=== PATIENT | female | born 1985 | race Caucasian/White ===

== ENCOUNTER → 2017-02-12 | Outpatient (CLI) | payer OTHER ==
[~2017-02-12] MED LIST: HYDR-5688 PO; IBUP-1050 PO
== END | disposition home or self-care (01) ==
LOC: C.PAPS 08:39
PROVIDERS: ATTEND Obstetrics & Gynecology
DX: Z12.4 Encounter for screening for malignant neoplasm of cervix (principal)

== ENCOUNTER 2017-07-01 20:30 | Emergency (ER) | payer OTHER ==
[~2017-07-01] VITALS: Ht 170.2 cm; Wt 82.0 kg
[2017-07-01 20:45] VITALS: TEMP 36.7; Ht 170.2 cm; Wt 82.0 kg
[2017-07-01] MEDS ORDERED: HYDROCODONE/ACETAMOPHEN 5/325MG TAB PO STA (21:30)
[2017-07-01] MEDS ORDERED: IBUP-1050 PO (21:38)
--- NOTE | 2017-07-01 22:04 | DIAGNOSTIC IMAGING REPORT ---
RIGHT KNEE 1 OR 2 VIEWS ROUTINE CLINICAL HISTORY: right knee pain Right pain COMPARISON: None. DISCUSSION: The bones and joint spaces appear intact. There is no evidence of fracture, dislocation or bony disease. There is no evidence for soft tissue swelling. IMPRESSION: Negative study. The above report was generated using voice recognition software. It may contain grammatical, syntax or spelling errors. Electronically signed by: Jasmeet Jimenez M.D. 07/01/2017 10:03 PM Dictated Date/Time: 07/01/2017 10:02 PM
--- NOTE | 2017-07-01 22:05 | DIAGNOSTIC IMAGING REPORT ---
RIGHT TIBIA/FIBULA 2 VIEWS ROUTINE CLINICAL HISTORY: lower leg pain Right pain COMPARISON: None. DISCUSSION: The bones and joint spaces appear intact. There is no evidence of fracture, dislocation or bony disease. There is no evidence for soft tissue swelling. IMPRESSION: Negative study. The above report was generated using voice recognition software. It may contain grammatical, syntax or spelling errors. Electronically signed by: Jasmeet Jimenez M.D. 07/01/2017 10:03 PM Dictated Date/Time: 07/01/2017 10:03 PM
--- NOTE | 2017-07-01 22:13 | EMERGENCY ROOM VISIT NOTE ---
ED Visit Note First contact with patient: 21:24 CHIEF COMPLAINT: Right lower leg pain HISTORY OF PRESENT ILLNESS: This 31-year-old female presents the ER with chief complaint of right lower leg pain. The patient states that she was running on an elliptical and approximately 30 minutes into the workout she got a burning sensation on the lateral aspect of her right knee. She continued to work out and when she was done she had increased pain in the right knee extending down the lateral aspect of her leg and now has some numbness in her toes. The patient admits she had a skiing accident when she was 11 years old and injured the right knee but she has not had problems since that time. She has been taken ibuprofen for pain without any relief. REVIEW OF SYSTEMS: 6 system review was performed and was negative unless stated otherwise in history of present illness. PMH: The patient is healthy; cholecystectomy, tonsillectomy, ovarian cyst removal SOCIAL HISTORY: Patient lives with her children. The patient denies any tobacco use but admits to occasional alcohol use. PHYSICAL EXAM: Vital Signs: Were reviewed Reviewed Nurse's notes. GENERAL: 31- year-old female appears in no acute distress. MENTAL STATUS: Alert, oriented, and cooperative. RIGHT KNEE: No gross bony deformity noted. No erythema or edema noted. The patient has tenderness palpation over the lateral aspect of the knee. Limited range of motion secondary to pain. RIGHT LOWER LEG: No erythema noted. The patient has some slight ecchymosis noted on the distal lateral third of the lower leg extending onto the lateral aspect of the ankle. She is unable to flex her toes on her own. Pedal pulses 2+. EMERGENCY DEPARTMENT COURSE: The patient was evaluated. The patient was given [place] 5/325 mg 2 tablets by mouth for pain. X-ray of the right knee and right lower leg was ordered and interpreted by the radiologist and myself. DIAGNOSTICS:RIGHT KNEE 1 OR 2 VIEWS ROUTINE CLINICAL HISTORY: right knee pain Right pain COMPARISON: None. DISCUSSION: The bones and joint spaces appear intact. There is no evidence of fracture, dislocation or bony disease. There is no evidence for soft tissue swelling. IMPRESSION: Negative study. The above report was generated using voice recognition software. It may contain grammatical, syntax or spelling errors. Electronically signed by: Jasmeet Jimenez M.D. 07/01/2017 10:03 PM RIGHT TIBIA/FIBULA 2 VIEWS ROUTINE CLINICAL HISTORY: lower leg pain Right pain COMPARISON: None. DISCUSSION: The bones and joint spaces appear intact. There is no evidence of fracture, dislocation or bony disease. There is no evidence for soft tissue swelling. IMPRESSION: Negative study. The above report was generated using voice recognition software. It may contain grammatical, syntax or spelling errors. Electronically signed by: Jasmeet Jimenez M.D. 07/01/2017 10:03 PM Dictated Date/Time: 07/01/2017 10:03 PM The patient was informed of the findings. The patient was placed in a knee immobilizer and given crutches. The patient was discharged home in stable condition. She was given a [place] home pack. DIAGNOSIS: Right knee and lower leg pain DISCHARGE INSTRUCTIONS: Knee immobilizer for 3 - 5 days until the pain subsides , ibuprofen, 600 mg every 6 hours if needed for pain. [place] as needed for more severe pain. Do not drive while taking the [place]. Ice to and elevation to the knee frequently for the next 24 hours. Stay off the leg as much as possible and see your physician in 4 or 5 days if you are not improving. Problem List Medical Problems: (1) Tendonitis Status: Resolved Surgical Problems: (1) H/O: hysterectomy Status: Resolved (2) Hx of cholecystectomy Status: Resolved Current/Historical Medications Scheduled PRN Ibuprofen (Advil), 600 MG PO Q6H PRN for Pain Allergies Coded Allergies: Cefdinir (Verified Allergy, Intermediate, RASH, 09/06/16) Sodium Benzoate (Verified Allergy, Mild, Hives/Rash, 09/06/16) Reported by PT. Vital Signs Date Time Temp Pulse Resp B/P (MAP) Pulse Ox O2 Delivery O2 Flow Rate FiO2 07/01/17 20:45 36.7 78 16 115/75 100 Room Air Medications Administered Medications (Trade) Dose Ordered Sig/Andi Route Start Time Stop Time Status Last Admin Dose Admin Acetaminophen/ Hydrocodone Bitart ([place] 5/325 Tab) 2 tab NOW STAT PO 07/01/17 21:30 07/01/17 21:32 DC 07/01/17 21:36 2 TAB Departure Information Referrals No Doctor, Assigned (PCP) Patient Instructions [facility]
[2017-07-01] MEDS ORDERED: HYDR-5688 PO (22:15)
[2017-07-01] MEDS ORDERED: NORCO 5/325MG HOME PACK PO ONE (22:15)
[2017-07-01 22:30] VITALS: BP 132/58; PULSE 71; O2SAT 95
== END 2017-07-01 22:30 | disposition home or self-care (01) ==
LOC: C.EDB 20:33 → C.EDD 22:30
DX: M79.661 Pain in right lower leg (principal); M25.561 Pain in right knee; Z87.828 Personal history of other (healed) physical injury and trauma; Z90.710 Acquired absence of both cervix and uterus; Z90.49 Acquired absence of other specified parts of digestive tract; Z90.89 Acquired absence of other organs; Z98.890 Other specified postprocedural states

== ENCOUNTER 2023-12-18 19:10 | Observation (INO) ==
[2023-12-18] MEDS: MoRPHine SULFATE 4 MG/ML 1 ML CARP\\VIAL IV STA (19:57)
[2023-12-18] MEDS: SODIUM CHLORIDE 0.9% 1,000 ML IV STA (19:57)
[2023-12-18] MEDS: ONDANSETRON INJ 2 MG/ML 2 ML VIAL IV STA (19:58)
[2023-12-18 20:25] LABS: Appearance Urine Clear (Clear); Bilirubin Urine Negative (Negative); Blood Urine Negative (Negative); Color Urine Yellow; Glucose Urine UA Negative (Negative); Ketones Urine Negative (Negative); Leukocyte Esterase Urine Negative (Negative); Nitrite Urine Negative (Negative); Protein Urine Negative (Negative); Specific Gravity Urine 1.015 (1.000-1.030); Urobilinogen Urine Negative (Negative); pH Urine 5.5 (4.5-7.5)
[2023-12-18 20:35] LABS: Hemoglobin 13.4 g/dl (12.0-16.0); Mean Corpuscular Hemoglobin 30.2 pg (25.0-34.0); Mean Corpuscular Hgb Conc 34.4 g/dL (32.0-36.0); Mean Platelet Volume 8.9 fL (9.4-12.4); Platelet Count 279 K/uL (130-400); RDW Coefficient of Variation 12.6 % (11.5-14.5); Red Blood Count 4.43 M/uL (4.20-5.40); White Blood Count 8.15 K/ul (4.8-10.8)
[2023-12-18 20:46] LABS: Albumin Globulin Ratio 1.5 (0.9-2); Albumin Level 4.2 gm/dl (3.4-5.0); BUN Creatinine Ratio 17.6 (10-20); Bilirubin,Total 0.3 mg/dl (0.2-1.0); Creatinine Clr Calc Pharmacy 121.1 ml/min; Est GFR (African American) 117.5 ml/min; Est GFR (Non-African American) 101.3 ml/min; Globulin 2.8 gm/dl (2.5-4.0); Potassium 3.8 mmol/L (3.5-5.1)
[2023-12-18] MEDS: OPTIRAY 320 500ml IV ONE (21:02)
[2023-12-18] MEDS: MoRPHine SULFATE 10 MG/ML CARP/VIAL IV STA (21:19)
--- NOTE | 2023-12-18 21:34 | Emergency Department Note ---
ED Provider Note History of Present Illness Chief Complaint: Abdominal Pain Stated Complaint: ABD PAIN Time Seen by Provider: 12/18/23 19:20 38-year-old female who presents to the emergency department with her daughter for evaluation of abdominal pain, left flank pain and pain going down the left lower extremity. The patient reports that she initially developed left lower quadrant pain radiating into the back. Around 3 PM this afternoon, the patient reported increasing pain. The patient admits to diarrhea for the past 2 days, along with nausea and vomiting. The patient has not noticed any blood in her stool or urine. The pain is worsened with ambulation. The patient denies any prior history of GI issues or colonoscopies. Family history is unknown as the patient was adopted. Patient denies , reporting a prior history of tubal ligation and hysterectomy. The patient rates her discomfort an 8 out of 10. Home Medications Medication Instructions Recorded Confirmed Type No Known Home Medications 12/18/23 12/18/23 History Allergies Allergy/AdvReac Type Severity Reaction Status Date / Time cefdinir Allergy Intermediate RASH Verified 12/18/23 20:40 sodium benzoate Allergy Mild Hives/Rash Verified 08/07/20 14:42 Past Med/Surg History Medical History Acute biliary pancreatitis (09/27/14) Choledocholithiasis Stress reaction Surgical History Hx of cholecystectomy H/O: hysterectomy Social History (Updated 12/18/23 @ 21:31 by Vincenzo Garcia) Smoking Status: Former smoker Hx Alcohol Use: No Hx Substance Use: No Preferred Language: Tajik marital status: Single Current Living Situation: Family current occupational status: employed Feels Safe at Home: Yes Physical Exam Vital Signs Vital Signs - 24 hr 12/18/23 19:15 12/18/23 19:32 12/18/23 21:18 Temperature 36.7 C Temperature Source Temporal Artery Scan Pulse Rate 85 76 Pulse Rate [Apical] 67 Pulse Rhythm [Apical] Regular Pulse Strength [Apical] Normal Respiratory Rate 16 18 Respiratory Effort / Characteristics Non-Labored Respiratory Depth Normal Respiratory Pattern Regular Blood Pressure 165/98 H Blood Pressure [Right Arm] 122/76 Blood Pressure Mean 120 Blood Pressure Mean [Right Arm] 91 Blood Pressure Position [Right Arm] Sitting Pulse Oximetry 98 95 Oxygen Delivery Method Room Air Room Air Sepsis Recent Fever Within 48 Hours No Sepsis New/Unexplained Change in Mental Status No Sepsis Action Taken by Nursing No Action Required CONSTITUTIONAL: Healthy and well nourished. Patient appears in moderate discomfort. HEENT: No scleral icterus or conjunctival injection/pallor. RESPIRATORY: Clear to auscultation bilaterally with no wheezing, crackles, rhonchi or stridor. CARDIOVASCULAR: Regular rate and rhythm with no murmurs, rubs or gallops. GASTROINTESTINAL: Bowel sounds present in all quadrants. Patient has left lower quadrant tenderness to palpation without rigidity, guarding or rebound. Negative logroll of the left hip, and negative straight leg raise. MUSCULOSKELETAL: Full range of motion of all joints without discomfort. INTEGUMENTARY: No rash or other significant dermatologic conditions noted. HEMATOLOGIC: No ecchymosis or petechiae. PSYCHIATRIC: Flat affect. NEUROLOGIC: No focal neurologic deficits noted. Course Course Patient history and physical exam were performed. Nurses notes were reviewed. Vital signs were reviewed. IV access was established, and labs were drawn. The patient was hydrated with a liter normal saline, and administered IV morphine and Zofran for pain. Review of labs shows a normal CBC and CMP, other than an elevated random glucose. Urinalysis shows no hematuria or signs of infection. Serum was negative. After returning from CT imaging, the patient did request something additional for pain, and was administered additional IV morphine. CT with IV contrast of the abdomen and pelvis shows a questionable small bowel obstruction, with radiologist report showing no significant small bowel distention or transition point. Closed-loop obstruction was also questioned. Upon reevaluation, the patient was still rating her discomfort a 6 out of 10. She denied any persistent nausea. I did discuss the case further with Dr. Tapia, ED attending physician, who recommended discussing the case with the hospitalist service. The case was then discussed with Dr. Gerardo, [facility] hospitalist, who has agreed with overnight observation, and possible small bowel follow-through if symptoms persist. Please see their dictation for further treatment and final disposition. Administered Medications Discontinued Medications Hydromorphone HCl (Hydromorphone Inj 1 Mg/Ml Syringe) 1 mg IV NOW STA Stop: 12/18/23 22:53 Last Admin: 12/18/23 23:00 Dose: 1 mg Documented By: BINU Sodium Chloride (Nss) 1,000 mls @ 999 mls/hr IV .Q1H1M STA Stop: 12/18/23 20:46 Last Infusion: 12/18/23 21:11 Dose: Infused Documented By: Admin: 12/18/23 19:57 Dose: 999 mls/hr Documented By: BINU Ioversol (Optiray 320 500ml) 87 ml IV ONCE ONE Stop: 12/18/23 21:03 Last Admin: 12/18/23 21:02 Dose: 87 ml Documented By: SHAKIRA Morphine Sulfate (Morphine Sulfate 4 Mg/Ml 1 Ml Carp\Vial) 4 mg IV NOW STA Stop: 12/18/23 19:47 Last Admin: 12/18/23 19:57 Dose: 4 mg Documented By: BINU Morphine Sulfate (Morphine Sulfate 10 Mg/Ml Carp/Vial) 6 mg IV NOW STA Stop: 12/18/23 20:56 Last Admin: 12/18/23 21:19 Dose: 6 mg Documented By: BINU Ondansetron HCl (Ondansetron Inj 2 Mg/Ml 2 Ml Vial) 4 mg IV NOW STA Stop: 12/18/23 19:47 Last Admin: 12/18/23 19:58 Dose: 4 mg Documented By: BINU Medical Decision Making Medical Records Attestation: I reviewed the patient's medical records. Home Medications was personally reviewed by me Laboratory Data Attestation: I reviewed the patient's lab results. 12/18/23 20:11 12/18/23 20:11 Lab Results 12/18/23 12/18/23 Range/Units 20:11 Unknown WBC 8.15 (4.8-10.8) K/ul RBC 4.43 (4.20-5.40) M/uL Hgb 13.4 (12.0-16.0) g/dl Hct 39.0 (37.0-47.0) % MCV 88.0 (80.0-100.0) fL MCH 30.2 (25.0-34.0) pg MCHC 34.4 (32.0-36.0) g/dL RDW Std Deviation 40.0 (36.4-46.3) fL RDW Coeff of Jose 12.6 (11.5-14.5) % Plt Count 279 (130-400) K/uL MPV 8.9 L (9.4-12.4) fL Sodium 137 (136-145) mmol/L Potassium 3.8 (3.5-5.1) mmol/L Chloride 105 (98-107) mmol/L Carbon Dioxide 25 (21-32) mmol/L Anion Gap 7 (3-11) BUN 13 (6-23) mg/dl Creatinine 0.74 (0.6-1.2) mg/dl Est Cr Clr Drug Dosing 121.1 ml/min Est GFR ( Amer) 117.5 ml/min Est GFR (Non-Af Amer) 101.3 ml/min BUN/Creatinine Ratio 17.6 (10-20) Glucose 106 H (70-99(Fasting)) mg/dl Calcium 9.0 (8.6-10.3) mg/dl Total Bilirubin 0.3 (0.2-1.0) mg/dl AST 19 (13-39) U/L ALT 17 (7-52) U/L Alkaline Phosphatase 38 (34-104) U/L Total Protein 7.0 (6.0-8.3) gm/dl Albumin 4.2 (3.4-5.0) gm/dl Globulin 2.8 (2.5-4.0) gm/dl Albumin/Globulin Ratio 1.5 (0.9-2) Lipase 64 (11-82) U/L HCG, Qual Negative (Negative) Urine Color Yellow Urine Appearance Clear (Clear) Urine pH 5.5 (4.5-7.5) Ur Specific [place] 1.015 (1.000-1.030) Urine Protein Negative (Negative) Urine Glucose (UA) Negative (Negative) Urine Ketones Negative (Negative) Urine Blood Negative (Negative) Urine Nitrite Negative (Negative) Urine Bilirubin Negative (Negative) Urine Urobilinogen Negative (Negative) Ur Leukocyte Esterase Negative (Negative) Imaging Data Attestation: I personally reviewed and interpreted this imaging study as follows: My Impression: My interpretation of the CT with IV contrast of the abdomen and pelvis does not show evidence for diverticulitis, appendicitis or free air. There is a questionable small bowel obstruction without anticipated dilation of small bowel on either side of fecal material in that region. Radiologist questions the possibility of a small loop obstruction, with recommendations for a small bowel follow-through as warranted. Radiologist report was otherwise reviewed with concurrence. Radiologist's Impression: Abdomen/Pelvis CT 12/18/23 19:47 Exam(s): CT ABDOMEN + PELVIS With Contrast IV Amt: 87 ml opti 320 EXAM: CT Abdomen and Pelvis With Intravenous Contrast CLINICAL HISTORY: Reason for exam: LLQ abd pain. TECHNIQUE: Axial computed tomography images of the abdomen and pelvis with intravenous contrast. CTDI is 27.95 mGy and DLP is 1447.82 mGy-cm. Automated exposure control was utilized for the study. A dose lowering technique was utilized adhering to the principles of ALARA. CONTRAST: Patient received 87 ml opti 320 of IV contrast COMPARISON: 01/26/2016 FINDINGS: Lung bases: Unremarkable. No mass. No consolidation. ABDOMEN: Liver: Unremarkable. No mass. Gallbladder and bile ducts: Gallbladder has been removed. No ductal dilation. Pancreas: Unremarkable. No mass. No ductal dilation. Spleen: Unremarkable. No splenomegaly. Adrenals: Unremarkable. No mass. Kidneys and ureters: 2.6 cm simple cyst arising off the lower pole of the left kidney. No further workup is required. No hydronephrosis. Stomach and bowel: Abnormal formed fecal material within a short segment of normal caliber small bowel within the deep posterior pelvis but both the small bowel proximal and distal to the point is decompressed and is of unclear significance. No obstruction. No mucosal thickening. PELVIS: Appendix: No findings to suggest acute appendicitis. Bladder: Unremarkable. No mass. Reproductive: Unremarkable as visualized. ABDOMEN and PELVIS: Intraperitoneal space: Small amount of free fluid in the pelvis with loose calcification. No free air. Bones/joints: No acute fracture. No dislocation. Soft tissues: Unremarkable. Vasculature: Unremarkable. No abdominal aortic aneurysm. Lymph nodes: Unremarkable. No enlarged lymph nodes. IMPRESSION: Abnormal formed fecal material within a short segment of normal caliber small bowel within the deep posterior pelvis but both the small bowel proximal and distal to the point is decompressed and is of unclear significance. Closed loop obstruction would be possible but seems less likely without the dilatation of the actual small bowel loop but if there is concern for bowel obstruction, small bowel series can be considered.. Electronically signed by: Isaiah Peralta M.D. 12/18/23 21:32 PM MDM Narrative See ED Course section for further details of today's visit. The patient presents with complaint of left lower quadrant abdominal pain, as well as preceding nausea, vomiting and loose stools. Today's workup is concerning for possible small bowel obstruction. The patient is afebrile and does not have any leukocytosis to suggest infectious etiology. CT imaging does not show evidence for diverticulitis, appendicitis or perforation. Laboratory studies also are not suggestive of pancreatitis, cholecystitis or hepatitis. The patient has persistent pain, and given CT findings, I do feel that further observation is warranted. I did discuss the case further with Dr. Tapia, ED attending physician, who is in agreement with workup and observation plan. Impression Left lower quadrant abdominal pain, Nausea and vomiting Discharge Plan Visit Data Chief Complaint: Abdominal Pain Stated Complaint: ABD PAIN ED Provider: Jasmeet Tapia ED Midlevel Provider: Vincenzo Garcia Discharge Problem: Left lower quadrant abdominal pain, Nausea and vomiting Forms Stand Alone Forms: My [facility] [employer] Prescriptions Prescriptions: No Action No Known Home Medications Referrals Referrals: PCP,NO [Primary Care Provider] -
[2023-12-18 21:37] LABS: Pregnancy Test, Serum Negative (Negative)
[2023-12-18] MEDS: HYDROmorphone INJ 1 MG/ML SYRINGE IV STA (23:00)
--- NOTE | 2023-12-18 23:07 | History & Physical Report ---
Date of Service December 18, 2023 Assessment & Plan (1) Left lower quadrant abdominal pain: Plan: 38yo female presenting with LLQ abdominal pain, nausea, increased bowel movements. CT findings as above, concerning for possible closed loop bowel obstruction. Patient has had a cholecystectomy and hysterectomy in the past. No prior bowel obstructions. Presently without nausea. Passing some flatus. -Observation to medical -Maintain NPO -LR at 125mL/hr x 2 liters -Check Mg and replete as needed -Zofran PRN -Dilaudid PRN -KUB in the morning. If suspected obstruction can obtain contrast SB series (2) Nausea and vomiting: Plan: -KUB in the AM -Zofran and Dilaudid PRN F/E/N - LR at 125mL/hr x 2L, electrolytes WNL, NPO for now Ppx - Low risk for DVT Code - Full Dispo - Observation to medical History of Present Illness Chief Complaint: abdominal pain Primary Care Provider: NO PCP Candi Andrews is a 38yo female presenting with abdominal pain. Patient reports over the last several days she has had intermittent nausea with an episode of non-bloody/non-bilious vomiting yesterday as well as multiple soft BMs daily, more than usual. She has had some abdominal distention and bloating as well. This afternoon at 15:00 she developed severe LLQ pain and pressure. The pain progressed throughout the day with radiation into the back and into the left thigh. She tool Tylenol at home with no relief. She is passing gas but feels that she has a lot of bloating and distention. Otherwise, no fever, chills, cough, SOB, CP. No urinary complaints. Patient had her period last week. No vaginal discharge or discomfort. No additional complaints at this time. In the ER she is afebrile, HD stable, NAD ER Course: Morphine 4mg IV Morphine 6mg IV Zofran 4mg IV NSS Dilaudid 1mg IV Allergies Allergy/AdvReac Type Severity Reaction Status Date / Time cefdinir Allergy Intermediate RASH Verified 12/18/23 20:40 sodium benzoate Allergy Mild Hives/Rash Verified 08/07/20 14:42 Home Medications Medication Instructions Recorded Confirmed Type No Known Home Medications 12/18/23 12/18/23 History Past Med/Surg History Medical History (Updated 12/18/23 @ 23:32 by Suri Gerardo DO) Acute biliary pancreatitis (09/27/14) Choledocholithiasis Surgical History Hx of cholecystectomy H/O: hysterectomy Social History Smoking Status: Former smoker Hx Alcohol Use: No Hx Substance Use: No Preferred Language: Palauan marital status: Single Current Living Situation: Family current occupational status: employed Feels Safe at Home: Yes Review of Systems Review of Systems: All systems reviewed & are unremarkable except as noted in HPI & below Physical Exam Physical Exam: General: patient uncomfortable but in NAD, answering questions appropriately Skin: warm, dry, intact, no rashes or lesions HEENT: NC/AT, PERRL, EOMI, anicteric sclera, conjunctiva without injection, external ear normal to inspection and nontender, nares patent, moist mucus membranes, dentition intact, no oropharyngeal lesions, neck supple, trachea midline, no LAD, no thyromegaly, no JVD Heart: +S1/S2, regular, no m/r/g Lungs: equal air entry bilaterally, no rales/rhonchi/wheezes Abd: hypoactive bowel sounds, soft, mildly distended, LLQ pain without rebound/guarding Ext: warm, 2+ pulses in UE/LE bilaterally, no clubbing/cyanosis or edema Neuro: nonfocal, patient AA&O x 4, speech intact, no facial droop, moving all extremities on command with equal strength 5/5 Results & Data Results & Data Vital Signs (Past 12 Hours) Vital Signs Temp Pulse Pulse Resp BP BP Pulse Ox 12/18/23 21:18 67 18 122/76 95 12/18/23 19:32 76 12/18/23 19:15 36.7 C 85 16 165/98 H 98 O2 Del Method 12/18/23 21:18 Room Air 12/18/23 19:32 12/18/23 19:15 Room Air Laboratory Results Laboratory Results WBC 8.15 K/ul (4.8-10.8) 12/18/23 20:11 RBC 4.43 M/uL (4.20-5.40) 12/18/23 20:11 Hgb 13.4 g/dl (12.0-16.0) 12/18/23 20:11 Hct 39.0 % (37.0-47.0) 12/18/23 20:11 MCV 88.0 fL (80.0-100.0) 12/18/23 20:11 MCH 30.2 pg (25.0-34.0) 12/18/23 20:11 MCHC 34.4 g/dL (32.0-36.0) 12/18/23 20:11 RDW Std Deviation 40.0 fL (36.4-46.3) 12/18/23 20:11 RDW Coeff of Jose 12.6 % (11.5-14.5) 12/18/23 20:11 Plt Count 279 K/uL (130-400) 12/18/23 20:11 MPV 8.9 fL (9.4-12.4) L 12/18/23 20:11 Sodium 137 mmol/L (136-145) 12/18/23 20:11 Potassium 3.8 mmol/L (3.5-5.1) 12/18/23 20:11 Chloride 105 mmol/L (98-107) 12/18/23 20:11 Carbon Dioxide 25 mmol/L (21-32) 12/18/23 20:11 Anion Gap 7 (3-11) 12/18/23 20:11 BUN 13 mg/dl (6-23) 12/18/23 20:11 Creatinine 0.74 mg/dl (0.6-1.2) 12/18/23 20:11 Est Cr Clr Drug Dosing 121.1 ml/min 12/18/23 20:11 Est GFR ( Amer) 117.5 ml/min 12/18/23 20:11 Est GFR (Non-Af Amer) 101.3 ml/min 12/18/23 20:11 BUN/Creatinine Ratio 17.6 (10-20) 12/18/23 20:11 Glucose 106 mg/dl (70-99(Fasting)) H 12/18/23 20:11 Calcium 9.0 mg/dl (8.6-10.3) 12/18/23 20:11 Total Bilirubin 0.3 mg/dl (0.2-1.0) 12/18/23 20:11 AST 19 U/L (13-39) 12/18/23 20:11 ALT 17 U/L (7-52) 12/18/23 20:11 Alkaline Phosphatase 38 U/L (34-104) 12/18/23 20:11 Total Protein 7.0 gm/dl (6.0-8.3) 12/18/23 20:11 Albumin 4.2 gm/dl (3.4-5.0) 12/18/23 20:11 Globulin 2.8 gm/dl (2.5-4.0) 12/18/23 20:11 Albumin/Globulin Ratio 1.5 (0.9-2) 12/18/23 20:11 Lipase 64 U/L (11-82) 12/18/23 20:11 HCG, Qual Negative (Negative) 12/18/23 20:11 Urine Color Yellow 12/18/23 Unknown Urine Appearance Clear (Clear) 12/18/23 Unknown Urine pH 5.5 (4.5-7.5) 12/18/23 Unknown Ur Specific [place] 1.015 (1.000-1.030) 12/18/23 Unknown Urine Protein Negative (Negative) 12/18/23 Unknown Urine Glucose (UA) Negative (Negative) 12/18/23 Unknown Urine Ketones Negative (Negative) 12/18/23 Unknown Urine Blood Negative (Negative) 12/18/23 Unknown Urine Nitrite Negative (Negative) 12/18/23 Unknown Urine Bilirubin Negative (Negative) 12/18/23 Unknown Urine Urobilinogen Negative (Negative) 12/18/23 Unknown Ur Leukocyte Esterase Negative (Negative) 12/18/23 Unknown Impressions Abdomen/Pelvis CT 12/18/23 19:47 Exam(s): CT ABDOMEN + PELVIS With Contrast IV Amt: 87 ml opti 320 EXAM: CT Abdomen and Pelvis With Intravenous Contrast CLINICAL HISTORY: Reason for exam: LLQ abd pain. TECHNIQUE: Axial computed tomography images of the abdomen and pelvis with intravenous contrast. CTDI is 27.95 mGy and DLP is 1447.82 mGy-cm. Automated exposure control was utilized for the study. A dose lowering technique was utilized adhering to the principles of ALARA. CONTRAST: Patient received 87 ml opti 320 of IV contrast COMPARISON: 01/26/2016 FINDINGS: Lung bases: Unremarkable. No mass. No consolidation. ABDOMEN: Liver: Unremarkable. No mass. Gallbladder and bile ducts: Gallbladder has been removed. No ductal dilation. Pancreas: Unremarkable. No mass. No ductal dilation. Spleen: Unremarkable. No splenomegaly. Adrenals: Unremarkable. No mass. Kidneys and ureters: 2.6 cm simple cyst arising off the lower pole of the left kidney. No further workup is required. No hydronephrosis. Stomach and bowel: Abnormal formed fecal material within a short segment of normal caliber small bowel within the deep posterior pelvis but both the small bowel proximal and distal to the point is decompressed and is of unclear significance. No obstruction. No mucosal thickening. PELVIS: Appendix: No findings to suggest acute appendicitis. Bladder: Unremarkable. No mass. Reproductive: Unremarkable as visualized. ABDOMEN and PELVIS: Intraperitoneal space: Small amount of free fluid in the pelvis with loose calcification. No free air. Bones/joints: No acute fracture. No dislocation. Soft tissues: Unremarkable. Vasculature: Unremarkable. No abdominal aortic aneurysm. Lymph nodes: Unremarkable. No enlarged lymph nodes. IMPRESSION: Abnormal formed fecal material within a short segment of normal caliber small bowel within the deep posterior pelvis but both the small bowel proximal and distal to the point is decompressed and is of unclear significance. Closed loop obstruction would be possible but seems less likely without the dilatation of the actual small bowel loop but if there is concern for bowel obstruction, small bowel series can be considered.. Electronically signed by: Isaiah Peralta M.D. 12/18/23 21:32 PM PG Care Time/CCT Total # of Minutes Spent Total Time Spent with Patient: Total time spent is greater than 50% in coordination of care (as documented) at patient's floor/unit and/or counseling patient: Coding Level of Care Code 45138 INT INP/OBS CARE 2/55MIN Diagnoses Left lower quadrant abdominal pain R10.32 Nausea and vomiting R11.2
[2023-12-19] MEDS ORDERED: HYDROmorphone INJ 0.5 MG/0.5 ML SYR IV PRN (00:23)
[2023-12-19 00:42] LABS: Magnesium 1.7 mg/dl (1.7-2.4)
[2023-12-19] MEDS: LACTATED RINGER'S 1,000 ML IV SCH (01:05)
[2023-12-19] MEDS: ONDANSETRON INJ 2 MG/ML 2 ML VIAL IV PRN (02:10)
[2023-12-19] MEDS: HYDROmorphone INJ 0.5 MG/0.5 ML SYR IV PRN (02:10)
[2023-12-19 06:28] LABS: Hematocrit (blood only) 36.5 % (37.0-47.0); Hemoglobin 12.4 g/dl (12.0-16.0); Mean Corpuscular Hemoglobin 30.2 pg (25.0-34.0); Mean Platelet Volume 8.9 fL (9.4-12.4); Platelet Count 252 K/uL (130-400); RDW Coefficient of Variation 12.8 % (11.5-14.5); RDW Standard Deviation 41.2 fL (36.4-46.3); White Blood Count 8.46 K/ul (4.8-10.8)
[2023-12-19 06:43] LABS: BUN Creatinine Ratio 13.3 (10-20); Calcium 8.8 mg/dl (8.6-10.3); Creatinine Clr Calc Pharmacy 115.5 ml/min; Est GFR (African American) 102.2 ml/min; Est GFR (Non-African American) 88.2 ml/min; Potassium 3.7 mmol/L (3.5-5.1)
--- NOTE | 2023-12-19 11:25 | Hospitalist Progress Note ---
Date of Service December 19, 2023 Assessment & Plan (1) Left lower quadrant abdominal pain: Plan: 38yo female presenting with LLQ abdominal pain, nausea, increased bowel movements. CT findings as above, concerning for possible closed loop bowel obstruction and abnormal fecal matter. Patient has had a cholecystectomy and hysterectomy in the past. No prior bowel obstructions. Presently without nausea. Passing some flatus. -Obtain KUB, already done, official result pending -Maintain NPO -LR at 125mL/hr x 2 liters (2) Nausea and vomiting: Plan: -KUB in the AM -Zofran and Dilaudid PRN F/E/N - LR at 125mL/hr x 2L, electrolytes WNL, NPO for now Ppx - Low risk for DVT Code - Full Dispo - Observation to medical Plan Awaiting results of KUB Admission and Anticipated Discharge Date Admission Date: December 18, 2023 Subjective Patient seen and examined, still having some lower abdominal pain but states she is passing gas. Review of Systems Review of Systems: The patient is awake, alert and oriented 3, well developed and well nourished, normocephalic and atraumatic, lying in bed and in no acute distress. HEENT--PERRL, EOMI, mucous membranes and oropharynx mildly dry Neck--supple. No JVD. No bruits. Thyroid normal, trachea midline, no adenopathy. Heart--normal S1 and S2. No murmurs, rubs or gallops. Lungs--clear bilaterally, no respiratory distress, no accessory muscle use. Abdomen--normal bowel sounds and soft. Mild epigastric and left sided abdominal pain Extremities--no cyanosis or clubbing. No edema. Dermatologic--normal skin turgor, normal color, no abnormal lymph nodes, no rash. Neurologic--cranial nerves II through XII grossly intact. Rheumatologic--normal range of motion. Psychiatric--normal affect. Results & Data Results & Data Vital Signs (Past 12 Hours) Vital Signs Temp Pulse Pulse Pulse Resp BP BP 12/19/23 08:14 98.1 F 72 17 122/76 12/19/23 00:32 12/19/23 00:32 98.1 F 68 18 128/86 12/18/23 23:23 68 Pulse Ox O2 Del Method 12/19/23 08:14 96 Room Air 12/19/23 00:32 Room Air 12/19/23 00:32 98 Room Air 12/18/23 23:23 PG Care Time/CCT Total # of Minutes Spent Total Time Spent with Patient: Total time spent is greater than 50% in coordination of care (as documented) at patient's floor/unit and/or counseling patient: Coding Level of Care Code 61200 SUB INP/OBS CARE 2/35MIN Diagnoses Left lower quadrant abdominal pain R10.32 Nausea and vomiting R11.2 Time Spent (min) 35
--- NOTE | 2023-12-19 12:01 | XRay Report ---
KUB HISTORY: Abnormal abdomen and pelvis CT. Follow-up. possible obstruction COMPARISON: Abdomen and pelvis CT 12/18/2023. FINDINGS: The bowel gas pattern is unremarkable. There are no dilated loops of small bowel to suggest an obstruction. No renal calculi. No ureteral calculi. No pneumoperitoneum or pneumatosis. There is contrast within the bladder from the recent CT examination. Prior cholecystectomy. IMPRESSION: Nonobstructive bowel gas pattern. ACT 112: Negative or not required by law. Electronically signed by: Jeet Stephen M.D. 12/19/2023 12:00 PM
--- OUTSIDE RECORDS SUMMARY | 2023-12-19 14:36 | External Medical Summary | Summary of Care ---
Author Name Unknown Organization [facility] Address [address] [facility] [place] [address] Phone [phone] Care Team Providers Care Fusing Machine Operator Name Role Phone Unavailable Primary Care Provider Unavailabl e Reason for Visit * Reason Onset Date Comments TB Test Reading 08/03/2023 Encounter Details Date Type Department Care Team Description 08/03/2023 [facility] Visit [facility], [place] [address] [place] [address] [place] [facility] [address] [place] [address] PPD screening test* Allergies Active Allergy Reactions Severity Noted Date Comments Amoxicillin Hives 02/03/2015 Cefdinir Hives 10/04/2014 documented as of this encounter (statuses as of 08/03/2023) Medications Medication Sig Dispensed Refills Start Date End Date Status cyclobenzaprine (FLEXERIL) 10 MG TabletIndications:Spa sm of muscle Take 1 Tab by mouth 2 times a day as needed for Muscle spasms. 20 Tab 0 03/27/2017 Active etodolac XL (LODINE XL) 500 MG TB24 Take 2 Tabs by mouth daily. 60 Tab 1 2017 Active sertraline (ZOLOFT) 50 MG Tablet Take 0.5 Tablets by mouth in the morning. 0 02/09/2020 Active Vitamin D, Ergocalciferol, 1.25 MG (57473 UT) Capsule TK 1 C PO 1 TIME Q WK 0 02/09/2020 Active SUMAtriptan Succinate 100 MG Tablet Take 1 Tablet by mouth. 0 04/02/2019 Active Aspirin-Acetaminophen -Caffeine 250-250-65 MG per tablet Take 1 Tab by mouth. 0 04/02/2019 Active methylPREDNISolone (MEDROL DOSEPACK) 4 MG TBPKIndications:Rash and nonspecific skin eruption follow package directions 21 Tab 0 05/22/2020 Active documented as of this encounter (statuses as of 08/03/2023) Active Problems Problem Noted Date Pancreatitis, gallstone 10/04/2014 Iron deficiency anemia 10/04/2014 Circulation problem 10/04/2014 Tobacco use disorder 10/04/2014 General medical exam 01/10/2014 Endometriosis S/P unilateral salpingo-oophorectomy Overview: right documented as of this encounter (statuses as of 08/03/2023) Immunizations Name Administration Dates Next Due PPD 08/01/2023 documented as of this encounter Social History Tobacco Use Types Packs/Day Years Used Date Smoking Tobacco: Former Cigarettes 0.2 Q uit: 09/12/2014 Smokeless Tobacco: Never Alcohol Use Standard Drinks/Week Comments Yes 0 (1 standard drink = 0.6 oz pur e alcohol) Sex Assigned at Date Recorded Not on file Job Start Date Occupation Industry Not on file Not on file Not on file documented as of this encounter Progress Notes * Taylor Thayer LPN - 08/03/2023 3:09 PM EDT Patient here for PPD reading. PPD Results: 0 mm documented in this encounter Plan of Treatment Health Maintenance Due Date Last Done Comments Hepatitis B (1 of 3 - 3-dose series) 1983 Lipid Panel 1983 COVID-19 Vaccine (#1) 01/15/1984 HIV Screening 1998 Hepatitis C Screening 2001 DTaP,Tdap,and Td Vaccines (1 - Tdap) 2002 Pap Smear 2004 Cervical Cancer Screening 2013 HPV/Co-Test 2013 Depression Screening 09/12/2017 09/12/2016 Diabetes Screening 09/06/2019 09/06/2016, 0 01/26/2016, 12/26/2015, Additional history exists Mammogram 2023 Influenza Vaccine (FLU shot) (#1) 2023 GARDASIL-HPV IMMUNIZATION SERIES Aged Out No longer eligible based on patient's age to complete this topic MENINGOCOCCAL (MENACTRA/MENVEO) Aged Out No longer eligible based on patient's age to complete this topic Pneumococcal Vaccine: Pediatrics (0 to 5 Years) and At-Risk Patients (6 to 64 Years) Aged Out No longer eligible based on patient's age to complete this topic documented as of this encounter Medical Devices Not on filedocumented as of this encounter Visit Diagnoses Diagnosis PPD screening test- Primary Screening examination for pulmonary tuberculosis documented in this encounter
--- OUTSIDE RECORDS SUMMARY | 2023-12-19 14:36 | External Medical Summary | Summary of Care ---
Author Name Unknown Organization [facility] Address [address] [facility] [place] [address] Phone [phone] Care Team Providers Care Can Line Operator Name Role Phone Unavailable Primary Care Provider Unavailabl e Reason for Visit * Reason Onset Date Comments PPD Skin Test 08/01/2023 Encounter Details Date Type Department Care Team Description 08/01/2023 Immunization/I njection [facility], [place] [address] [address] [place], Nurse [facility] [place] [address] [facility] [place] [address] Screening-pulmonary TB* Allergies Active Allergy Reactions Severity Noted Date Comments Amoxicillin Hives 02/03/2015 Cefdinir Hives 10/04/2014 documented as of this encounter (statuses as of 08/01/2023) Medications Medication Sig Dispensed Refills Start Date End Date Status cyclobenzaprine (FLEXERIL) 10 MG TabletIndications:Spa sm of muscle Take 1 Tab by mouth 2 times a day as needed for Muscle spasms. 20 Tab 0 03/27/2017 Active etodolac XL (LODINE XL) 500 MG TB24 Take 2 Tabs by mouth daily. 60 Tab 1 2017 Active sertraline (ZOLOFT) 50 MG Tablet Take 50 mg by mouth daily. 0 02/09/2020 Active Vitamin D, Ergocalciferol, 1.25 MG (91599 UT) Capsule TK 1 C PO 1 TIME Q WK 0 02/09/2020 Active SUMAtriptan Succinate 100 MG Tablet Take 100 mg by mouth. 0 04/02/2019 Active Aspirin-Acetaminophen -Caffeine 250-250-65 MG per tablet Take 1 Tab by mouth. 0 04/02/2019 Active methylPREDNISolone (MEDROL DOSEPACK) 4 MG TBPKIndications:Rash and nonspecific skin eruption follow package directions 21 Tab 0 05/22/2020 Active documented as of this encounter (statuses as of 08/01/2023) Active Problems Problem Noted Date Pancreatitis, gallstone 10/04/2014 Iron deficiency anemia 10/04/2014 Circulation problem 10/04/2014 Tobacco use disorder 10/04/2014 General medical exam 01/10/2014 Endometriosis S/P unilateral salpingo-oophorectomy Overview: right documented as of this encounter (statuses as of 08/01/2023) Immunizations Name Administration Dates Next Due PPD [...] on file documented as of this encounter Patient Instructions * Patient Instructions* Taylor Thayer LPN - 08/01/2023 1:54 PM EDT PATIENT INSTRUCTIONS FOR TUBERCULOSIS TESTING Also known as: Purified Protein Derivative (PPD) IMPORTANT INFORMATION: Return to clinic on 08/03/23 after 155 pm but before 155 pm on 08/04/23 in order to have your PPD read. Whether you have active TB disease or simply test positive for TB infection, you must see a healthcare professional for evaluation and treatment. Tuberculosis (TB) is a disease that spreads through the air. It can cause serious health problems. TB is on the rise. To protect your health, get tested. Who Should Be Tested? Anyone can be exposed to TB. However, certain people are at higher risk for exposure, especially healthcare professionals, the homeless, and people coming from countries with high TB rates. People whose bodies are less able to fight off infections, such as the elderly and people with HIV and AIDS, are also more likely to get TB. If youre at risk for exposure, get tested regularly. The TB Skin Test The TB skin test tells you if the tuberculosis bacteria are in your body. Your healthcare professional places a small amount of solution under the skin with a needle to see if a reaction occurs. Keepin mind that although many people are infected with TB, very few develop TB disease. Getting Your TB Test Results Your test results will be evaluated during the next visit. In some cases, a second test may be doneto confirm results. What Do the Test Results Mean? Negative results mean you likely dont have the TB bacteria in your body. Positive results mean that you may have been infected with the TB bacteria. This doesnt necessarily mean you have active TB disease. More tests, such as chest x-rays, are needed to find out if youhave TB disease. [id number] [facility], [address] [place] [address], [place] [address]. All rights reserved. This information is not intended as a substitute for professional medical care. Always follow your healthcare professional's instructions. documented in this encounter Progress Notes * Taylor Thayer LPN - 08/01/2023 1:53 PM EDT Patient here for PPD administration. Patient verified by name and date of . Has patient ever had a positive PPD Screening Test? No Have you ever had a severe reaction to a PPD test? No Has patient ever had the BCG tuberculosis vaccine? No If the patient responds yes to any of the questions, they are NOT eligible for a PPD. DO NOT administer the PPD Screening Test and Notify the provider. Do you have a history of organ transplant or are you chronically immunosuppressed for any other reason? No Have you had any recent contact with someone who has TB? No Do you work in healthcare, in a mycobacteriology lab or in a correctional facility? No Do you have any history of injection drug use? No PPD administered per protocol in Left forearm at 155 pm on 08/01/2023. Patient instructed to return to clinic in 48-72 hours to have test read and was informed that failure to return within this time window invalidates the test results. documented in this encounter Plan of Treatment Health Maintenance Due Date Last Done Comments Hepatitis B (1 of 3 - 3-dose series) 1983 Lipid Panel 1983 COVID-19 Vaccine (#1) 01/15/1984 HIV Screening 1998 Hepatitis C Screening 2001 DTaP,Tdap,and Td Vaccines (1 - Tdap) 2002 Pap Smear 2004 Cervical Cancer Screening 2013 HPV/Co-Test 2013 Depression Screening 09/12/2017 09/12/2016 Mammogram 2023 Influenza Vaccine (FLU shot) (#1) 2023 GARDASIL-HPV IMMUNIZATION SERIES Aged Out No longer eligible based on patient's age to complete this topic MENINGOCOCCAL (MENACTRA/MENVEO) Aged Out No longer eligible based on patient's age to complete this topic Pneumococcal Vaccine: Pediat rics (0 to 5 Years) and At-Risk Patients (6 to 64 Years) Aged Out No longer eligi ble based on patient's age to complete this topic documented as of this encounter Medical Devices Not on filedocumented as of this encounter Visit Diagnoses Diagnosis Screening-pulmonary TB- Primary Screening examination for pulmonary tuberculosis documented in this encounter
--- OUTSIDE RECORDS SUMMARY | 2023-12-19 14:36 | External Medical Summary | Summary of Care ---
Author Name Unknown Organization [facility] Address [address] [place] [address] Phone [phone] Care Team Providers Care Manager Line Name Role Phone Unavailable Primary Care Provider Unavailabl e Reason for Referral * Evaluate & Treat - Unlimited Visits (Within 10 days (routine)) - Pending Review Specialty Diagnoses / Procedures Referred By Natacha martinez Referred To Contact Neurology Diagnoses Migraine variant Madison Cruz PA-C [address] [address] Referral ID Status Reason Start Date Expiration Date Visits Requested Visits Authorized [id number] Pending Review Specialty Services Required 08/03/[phone] Question Answer Referral Priority Within 10 days (routine) [facility] NEUROLOGY REFERRAL QUESTIONS Other Conditions Comments Patient with recurrent migraines with seizure like activity. Looking to establish care. * Evaluate & Treat - Unlimited Visits (Within 10 days (routine)) - Pending Review Specialty Diagnoses / Procedures Referred By Natacha martinez Referred To Contact Family Medicine Diagnoses Physical exam, routine Madison Cruz PA-C [address] [address] Referral ID Status Reason Start Date Expiration Date Visits Requested Visits Authorized [id number] Pending Review Specialty Services Required 08/03/[phone] Question Answer Referral Priority Within 10 days (routine) Reason for Visit * Reason Comments Physical-Employment Encounter Details Date Type Department Care Team Description 08/03/2023 Convenient Care Visit Person [facility] [place] [address] [address] Madison Cruz PA-C [address] [address] Physical exam, routine*; Migraine variant Allergies Active Allergy Reactions Severity Noted Date Comments Amoxicillin Hives 02/03/2015 Cefdinir Hives 10/04/2014 documented as of this encounter (statuses as of 08/03/2023) Medications Medication Sig Dispensed Refills Start Date End Date Status cyclobenzaprine (FLEXERIL) 10 MG TabletIndications:Sp asm of muscle Take 1 Tab by mouth 2 times a day as needed for Muscle spasms. 20 Tab 0 03/27/2017 Active Additional Information Patient not taking.Reported on 08/03/2023 etodolac XL (LODINE XL) 500 MG TB24 Take 2 Tabs by mouth daily. 60 Tab 1 2017 Active Additional Information Patient not taking.Reported on 08/03/2023 sertraline (ZOLOFT) 50 MG Tablet Take 0.5 Tablets by mouth in the morning. 0 02/09/2020 Active Vitamin D, Ergocalciferol, 1.25 MG (30862 UT) Capsule TK 1 C PO 1 TIME Q WK 0 02/09/2020 Active SUMAtriptan Succinate 100 MG Tablet Take 1 Tablet by mouth. 0 04/02/2019 Active Aspirin-Acetaminophe n-Caffeine 250-250-65 MG per tablet Take 1 Tab by mouth. 0 04/02/2019 Acti ve methylPREDNISolone (MEDROL DOSEPACK) 4 MG TBPKIndications:Rash and nonspecific skin eruption follow package directions 21 Tab 0 05/22/2020 Active Additional Information Patient not taking.Reported on 08/03/2023 documented as of this encounter (statuses as [...] 0.2 Q uit: 09/12/2014 Smokeless Tobacco: Never Tobacco Cessation:Counseling Given: Not Answered Alcohol Use Standard Drinks/Week Comments Yes 0 (1 standard drink = 0.6 oz pur e alcohol) Sex Assigned at Date Recorded Not on file Job Start Date Occupation Industry Not on file Not on file Not on file documented as of this encounter Last Filed Vital Signs Vital Sign Reading Time Taken Comments Blood Pressure 114/74 08/03/2023 3:06 PM EDT Pulse 88 08/03/2023 3:06 PM EDT Temperature 36.3 C (97.3 F) 08/03/2023 3:06 PM ED T Respiratory Rate 18 08/03/2023 3:06 PM EDT Oxygen Saturation 99% 08/03/2023 3:06 PM EDT Inhaled Oxygen Concentration - - Weight 107.7 kg (237 lb 6.4 oz) 08/03/2023 3:06 PM EDT Height 170.2 cm (5' 7") 08/03/2023 3:06 PM EDT Body Mass Index 37.18 08/03/2023 3:06 PM EDT documented in this encounter Progress Notes * Madison Cruz PA-C - 08/03/2023 3:28 PM EDT Candi Andrews is a 38 year old female who presents for a work physical exam. Organization: [employer] She denies any current medical problems or concerns. Patient was accompanied by Self. denies Hx of cardiac issues, unknown family hx sudden cardiac < 50 yo denies Hx of seizures denies Hx of concussions denies Hx of MSK injuries in the past 6 months denies Hx of suicidal ideations, homicidal ideations denies Hx of depression. With history of anxiety. Takes zoloft. Sees a professional for this. Patient notes that anxiety is well controlled. denies Hx of substance abuse Review of Systems: General: No weakness, No fevers, sweats, or chills, No change in weight Head: No significant headache and No recent significant head injury Eyes: No recent significant change in vision and No eye pain, redness, discharge, or excessive tearing. Small injection on right eye Neck: No complaint of lumps in neck and No significant pain in neck Respiratory: No cough, sputum, or hemoptysis, No wheezing, No shortness of breath and No recent change in breathing Cardiac: No chest pain, No palpitations, No syncope, no edema. No dyspnea on exertion. Gastrointestinal: No nausea, vomiting, diarrhea, or constipation, No hematemesis, No blood in stools or black tarry stools and No abdominal pain Urinary: No incontinence, No hesitancy, No sensation of incomplete voiding and no nocturia Musculoskeletal: right knee pain ocassionally, No muscle pains or cramps, No joint swelling, no arthritis Skin: No rash, No itching Past Medical History: Diagnosis Date Endometriosis Ovarian cyst hx of S/P unilateral salpingo-oophorectomy 01/02 right Past Surgical History: Procedure Laterality Date DENTAL SURGERY PROCEDURE [facility] INFORMATION 2009 Other- right wrist surgery- tendon release LAPAROSCOPY, CHOLECYSTECTOMY WITH CHOLANGIOGRAPHY 09/25/14 09/25/2014 laparoscopic cholecystectomy with intraoperative cholangiogram [facility] caceres 09/25/14 MISCELLANEOUS ORDER ([facility] ONLY) 12/2015 Dr Neal, D&C, hysteroscope, lap Left ovarian cystectomy and right salpingo- oopherectomy &ablation endometriosis REMOVAL OF OVARIAN CYST(S) Ovarian cystectomy b/l REMOVE TONSILS & ADENOIDS, AGE 12+ 10/09/05 Dr. 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 Tobacco Use Smoking status: Former Packs/day: 0.20 Types: Cigarettes Quit date: 09/12/2014 Years since quittin.8 Smokeless tobacco: Never Substance and Sexual Activity Alcohol use: Yes Drug use: No Sexual activity: Never Partners: Male Comment: 2 kids Other Topics Concern Not on file Social History Narrative Not on file Social Determinants of Health Financial Resource Strain: Not on file Food Insecurity: Not on file Transportation Needs: Not on file Physical Activity: Not on file Stress: Not on file Social Connections: Not on file Intimate Partner Violence: Not on file Housing Stability: Not on file Current Outpatient Medications Medication Sig Dispense Refill sertraline (ZOLOFT) 50 MG Tablet Take 0.5 Tablets by mouth in the morning. SUMAtriptan Succinate 100 MG Tablet Take 1 Tablet by mouth. cyclobenzaprine (FLEXERIL) 10 MG Tablet Take 1 Tab by mouth 2 times a day as needed for Muscle spasms. (Patient not taking: Reported on 08/03/2023) 20 Tab 0 etodolac XL (LODINE XL) 500 MG TB24 Take 2 Tabs by mouth daily. (Patient not taking: Reported on 08/03/2023) 60 Tab 1 Vitamin D, Ergocalciferol, 1.25 MG (28200 UT) Capsule TK 1 C PO 1 TIME Q WK (Patient not taking: Reported on 08/03/2023) Tsvzuid-Pabhlasepkedz-Alljeere 250-250-65 MG per tablet Take 1 Tab by mouth. (Patient not taking: Reported on 08/03/2023) methylPREDNISolone (MEDROL DOSEPACK) 4 MG TBPK follow package directions (Patient not taking: Reported on 08/03/2023) 21 Tab 0 No current facility-administered medications for this visit. Review of patient's allergies indicates: Allergen Reactions Amoxicillin Hives Omnicef [Cefdinir] Hives Immunization History Administered Date(s) Administered PPD 08/01/2023 PHYSICAL EXAM: BP 114/74 | Pulse 88 | Temp 36.3 C (97.3 F) (Tympanic) | Resp 18 | Ht 1.702 m (5' 7") | Wt 107.7 kg (237 lb 6.4 oz) | SpO2 99% | BMI 37.18 kg/m | BSA 2.26 m General appearance: healthy, alert, no distress Skin: Skin color, texture, turgor normal. No rashes or lesions Head: Normocephalic., No masses, lesions, tenderness or abnormalities. Eyes: negative, Conjunctivae and corneas clear. PERRL, EOM's intact. Fundi benign Ears: External ears normal. Canals clear. TM's normal Nose/Sinuses: Nares normal. Septum midline. Mucosa normal. No drainage. Oropharynx: Lips, mucosa, and tongue normal. Teeth and gums normal. Oropharynx clear Neck: neck supple, no adenopathy, thyroid symmetric, normal size Lungs: Lungs clear to auscultation Heart:PMI normal. No lifts, heaves, or thrills. RRR. No murmurs, clicks or rubs Abdomen: abdomen soft, non-tender, bowel sounds normal, no masses or hepatosplenomegaly Neuro: Gait normal. Reflexes normal and symmetric., Sensation grossly normal, power is 5/5, cranialnerves II through XII are intact Musculoskeletal: Spine ROM normal. Muscular strength intact. ASSESSMENT: Satisfactory work physical exam Physical exam, routine (Primary) - FAMILY PRACTICE REFERRAL OP Migraine variant - NEUROLOGY REFERRAL OP PLAN: 1. Permission granted to perform work role without restrictions - forms signed and returned to the patient. 2. Follow up with Primary Care Provider as needed. Referrals placed to establish care. Madison Cruz PA-C [address] [address] documented in this encounter Nursing Notes * Taylor Thayer LPN - 08/03/2023 3:06 PM EDT Candi Andrews is a 38 year old female who presents to the walk-in clinic today for Chief Complaint Patient presents with Physical-Employment VISION: Right Eye:20/20 Left Eye: 20/20 Both: 20/20 Correction: yes Color: 3/3 Pt accompanied by: self documented in this encounter Plan of Treatment Scheduled Referrals Name Type Priority Associated Diagnoses Orde r Schedule FAMILY PRACTICE REFERRAL OP Referral Within 10 days (routine) Physical exam, routine Ordered: 08/03/2023 NEUROLOGY REFERRAL OP Referral Within 10 days (routine) Migraine variant Ordered: 08/03/2023 Health Maintenance Due Date Last Done Comments [...] as of this encounter Visit Diagnoses Diagnosis Physical exam, routine- Primary Routine general medical examination at a health care facility Migraine variant Variants of migraine, not elsewhere classified, without mention of intractable migraine without mention of status migrainosus documented in this encounter
[2023-12-19] MEDS: ACETAMINOPHEN 325 MG TAB PO PRN (14:41)
[2023-12-19] MEDS: POLYETHYLENE (MIRALAX) 17 GM PACK PO SCH (14:44)
--- NOTE | 2023-12-20 09:47 | Gastrointestinal Consultation ---
Date of Consultation December 20, 2023 Assessment & Plan (1) Left lower quadrant abdominal pain: It seems as if these problems did start after she had a self limited gastroenteritis. She tells me that when she had the nausea, vomiting and diarrhea she had no pain. The pain started the next day as those symptoms resolved. Her severe pain has gone but she is still left with some left sided abdominal pain. The fact that she gets a fair amount of pain with coughing suggests some of her issues might be musculoskeletal perhaps related to vomiting. 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 I will try lyleyl to see if that will help. I don't see where there is any endoscopic evaluation that will be helpful with the symptoms she is describing. Will follow History of Present Illness Reason for Consultation: persistent abdominal pain Attending Physician: Angel Cifuentes MD History of Present Illness 38 year old female who states that her problems started with what she felt was a "bug" as she had nausea, vomiting and diarrhea for a day or so. The day following the onset of her "bug" she developed pain in her lower abdomen. This was "intense and persistent" However that pain has gone and now she gets some pain in her left mid to upper abdomen that she feels may be associated with eating. This pain lasts for a while and goes away with meds. She has never had issues like this before. She does not overuse NSAIDs. She typically has no issues with her bowel movements. She has not lost weight. She did not have fever or chills. She does note and demonstrated it on my visit, pain with coughing. CT on admit suggested the possibility of "closed loop obstruction" but KUB yesterday was normal. Allergies Allergy/AdvReac Type Severity Reaction Status Date / Time cefdinir Allergy Intermediate RASH Verified 12/18/23 20:40 sodium benzoate Allergy Mild Hives/Rash Verified 08/07/20 14:42 Home Medications Medication Instructions Recorded Confirmed Type No Known Home Medications 12/18/23 12/18/23 History Patient History Medical History Acute biliary pancreatitis (09/27/14) Choledocholithiasis Surgical History Hx of cholecystectomy H/O: hysterectomy Social History Smoking Status: Former smoker Hx Alcohol Use: Yes Hx Substance Use: No Preferred Language: Albanian Communication Ability: Effective Sleep Lab Technologist Required: No Beliefs That Will Affect Care: None marital status: Single Current Living Situation: Other Current Living Situation Comment: home with son current occupational status: employed Feels Safe at Home: Yes Assistive Devices: None Review of Systems Review of Systems: All systems reviewed & are unremarkable except as noted in HPI & below Physical Exam Constitutional: WD/WN, vitals as above no acute distress Eyes: PERRL, conjunctivae normal, anicteric sclerae ENMT: external ear and nose normal, oropharynx normal Neck: trachea midline, no thyromegaly Respiratory: normal respiratory effort, lungs clear to auscultation Cardiovascular: RRR, no murmur, no edema Gastrointestinal (Abdomen): Inspection/Auscultation: abdomen normal to inspection Percussion/Palpation: + abdomen tender (on the left side) and abdomen soft; no hepatosplenomegaly Musculoskeletal: Extremities: no cyanosis and no clubbing Skin: no rashes, warm and dry Neurologic: PERRL, EOMI, accommodation nl, no face palsy, no dysarthria Psychiatric: Orientation: alert and oriented x 3 Results & Data Vital Signs (Past 12 Hours) Vital Signs Temp Pulse Resp BP Pulse Ox O2 Del Method 12/20/23 07:32 36.8 C 67 16 114/75 97 Room Air 12/19/23 22:07 Room Air Laboratory Results 12/18/23 12/18/23 12/19/23 20:11 Unknown 05:27 WBC 8.15 8.46 RBC 4.43 4.10 L Hgb 13.4 12.4 Hct 39.0 36.5 L MCV 88.0 89.0 MCH 30.2 30.2 MCHC 34.4 34.0 RDW Std Deviation 40.0 41.2 RDW Coeff of Jose 12.6 12.8 Plt Count 279 252 MPV 8.9 L 8.9 L Sodium 137 139 Potassium 3.8 3.7 Chloride 105 106 Carbon Dioxide 25 29 Anion Gap 7 4 BUN 13 11 Creatinine 0.74 0.83 Est Cr Clr Drug Dosing 121.1 115.5 Est GFR ( Amer) 117.5 102.2 Est GFR (Non-Af Amer) 101.3 88.2 BUN/Creatinine Ratio 17.6 13.3 Glucose 106 H 88 Calcium 9.0 8.8 Magnesium 1.7 Total Bilirubin 0.3 AST 19 ALT 17 Alkaline Phosphatase 38 Total Protein 7.0 Albumin 4.2 Globulin 2.8 Albumin/Globulin Ratio 1.5 Lipase 64 HCG, Qual Negative Urine Color Yellow Urine Appearance Clear Urine pH 5.5 Ur Specific [place] 1.015 Urine Protein Negative Urine Glucose (UA) Negative Urine Ketones Negative Urine Blood Negative Urine Nitrite Negative Urine Bilirubin Negative Urine Urobilinogen Negative Ur Leukocyte Esterase Negative Diagnostic Findings Abdomen/Pelvis CT 12/18/23 19:47 Exam(s): CT ABDOMEN + PELVIS With Contrast IV Amt: 87 ml opti 320 EXAM: CT Abdomen and Pelvis With Intravenous Contrast CLINICAL HISTORY: Reason for exam: LLQ abd pain. TECHNIQUE: Axial computed tomography images of the abdomen and pelvis with intravenous contrast. CTDI is 27.95 mGy and DLP is 1447.82 mGy-cm. Automated exposure control was utilized for the study. A dose lowering technique was utilized adhering to the principles of ALARA. CONTRAST: Patient received 87 ml opti 320 of IV contrast COMPARISON: 01/26/2016 FINDINGS: Lung bases: Unremarkable. No mass. No consolidation. ABDOMEN: Liver: Unremarkable. No mass. Gallbladder and bile ducts: Gallbladder has been removed. No ductal dilation. Pancreas: Unremarkable. No mass. No ductal dilation. Spleen: Unremarkable. No splenomegaly. Adrenals: Unremarkable. No mass. Kidneys and ureters: 2.6 cm simple cyst arising off the lower pole of the left kidney. No further workup is required. No hydronephrosis. Stomach and bowel: Abnormal formed fecal material within a short segment of normal caliber small bowel within the deep posterior pelvis but both the small bowel proximal and distal to the point is decompressed and is of unclear significance. No obstruction. No mucosal thickening. PELVIS: Appendix: No findings to suggest acute appendicitis. Bladder: Unremarkable. No mass. Reproductive: Unremarkable as visualized. ABDOMEN and PELVIS: Intraperitoneal space: Small amount of free fluid in the pelvis with loose calcification. No free air. Bones/joints: No acute fracture. No dislocation. Soft tissues: Unremarkable. Vasculature: Unremarkable. No abdominal aortic aneurysm. Lymph nodes: Unremarkable. No enlarged lymph nodes. IMPRESSION: Abnormal formed fecal material within a short segment of normal caliber small bowel within the deep posterior pelvis but both the small bowel proximal and distal to the point is decompressed and is of unclear significance. Closed loop obstruction would be possible but seems less likely without the dilatation of the actual small bowel loop but if there is concern for bowel obstruction, small bowel series can be considered.. Electronically signed by: Isaiah Peralta M.D. 12/18/23 21:32 PM KUB X-Ray 12/19/23 07:00 KUB HISTORY: Abnormal abdomen and pelvis CT. Follow-up. possible obstruction COMPARISON: Abdomen and pelvis CT 12/18/2023. FINDINGS: The bowel gas pattern is unremarkable. There are no dilated loops of small bowel to suggest an obstruction. No renal calculi. No ureteral calculi. No pneumoperitoneum or pneumatosis. There is contrast within the bladder from the recent CT examination. Prior cholecystectomy. IMPRESSION: Nonobstructive bowel gas pattern. ACT 112: Negative or not required by law. Electronically signed by: Jeet Stephen M.D. 12/19/2023 12:00 PM
--- NOTE | 2023-12-20 10:04 | Hospitalist Progress Note ---
Date of Service December 20, 2023 Assessment & Plan (1) Left lower quadrant abdominal pain: Plan: 38yo female presenting with LLQ abdominal pain, nausea, increased bowel movements. CT findings as above, concerning for possible closed loop bowel obstruction and abnormal fecal matter. Patient has had a cholecystectomy and hysterectomy in the past. No prior bowel obstructions. Presently without nausea. Passing some flatus. -CT abdomen and pelvis showed possible abnormal fecal collection however KUB was normal Patient still continues to have abdominal pain GI has been consulted, recommendations appreciated-- Diet as tolerated (2) Nausea and vomiting: Plan: Continue as needed Zofran F/E/N - LR at 125mL/hr x 2L, electrolytes WNL, NPO for now Ppx - Low risk for DVT Code - Full Dispo - Observation to medical Plan Continue symptomatic management, hopefully discharge About 48 hours Admission and Anticipated Discharge Date Admission Date: December 18, 2023 Subjective Patient seen and examined, still having some lower abdominal pain but states she is passing gas. Review of Systems Review of Systems: All systems reviewed are negative, apart from the ones contained in the history. Physical Exam Physical Exam: The patient is awake, alert and oriented 3, well developed and well nourished, normocephalic and atraumatic, lying in bed and in no acute distress. HEENT--PERRL, EOMI, mucous membranes and oropharynx mildly dry Neck--supple. No JVD. No bruits. Thyroid normal, trachea midline, no adenopathy. Heart--normal S1 and S2. No murmurs, rubs or gallops. Lungs--clear bilaterally, no respiratory distress, no accessory muscle use. Abdomen--normal bowel sounds and soft. Mild epigastric and left sided abdominal pain Extremities--no cyanosis or clubbing. No edema. Dermatologic--normal skin turgor, normal color, no abnormal lymph nodes, no rash. Neurologic--cranial nerves II through XII grossly intact. Rheumatologic--normal range of motion. Psychiatric--normal affect. Results & Data Results & Data Vital Signs (Past 12 Hours) Vital Signs Temp Pulse Resp BP Pulse Ox O2 Del Method 12/20/23 07:32 98.2 F 67 16 114/75 97 Room Air 12/19/23 22:07 Room Air PG Care Time/CCT Total # of Minutes Spent Total Time Spent with Patient: Total time spent is greater than 50% in coordination of care (as documented) at patient's floor/unit and/or counseling patient: Coding Level of Care Code 55045 SUB INP/OBS CARE 2/35MIN Diagnoses Left lower quadrant abdominal pain R10.32 Nausea and vomiting R11.2 Time Spent (min) 35
[2023-12-20] MEDS: DICYCLOMINE HCL 10 MG CAP PO ONE (10:35)
[2023-12-20] MEDS ORDERED: HYDROmorphone HCL 2 MG TAB PO PRN (12:50)
[2023-12-20] MEDS ORDERED: KETOROLAC TROMETHAMINE 15 MG/ML VIAL IV PRN (12:53)
[2023-12-20] MEDS: PANTOprazole 40 MG TAB PO SCH (14:00)
[2023-12-20] MEDS: DICYCLOMINE HCL 10 MG CAP PO SCH (16:46)
[2023-12-20] MEDS: POLYETHYLENE (MIRALAX) 17 GM PACK PO PRN (20:34)
[2023-12-21 05:34] LABS: Hematocrit (blood only) 39.9 % (37.0-47.0); Mean Corpuscular Hemoglobin 30.4 pg (25.0-34.0); Mean Corpuscular Hgb Conc 35.1 g/dL (32.0-36.0); Mean Corpuscular Volume 86.6 fL (80.0-100.0); Mean Platelet Volume 8.7 fL (9.4-12.4); Platelet Count 270 K/uL (130-400); RDW Coefficient of Variation 12.3 % (11.5-14.5); RDW Standard Deviation 38.4 fL (36.4-46.3); Red Blood Count 4.61 M/uL (4.20-5.40); White Blood Count 7.35 K/ul (4.8-10.8)
[2023-12-21 05:48] LABS: BUN Creatinine Ratio 12.2 (10-20); Calcium 9.6 mg/dl (8.6-10.3); Creatinine Clr Calc Pharmacy 116.9 ml/min; Est GFR (African American) 103.7 ml/min; Est GFR (Non-African American) 89.5 ml/min; Potassium 3.8 mmol/L (3.5-5.1)
--- NOTE | 2023-12-21 09:51 | Gastroenterology Progress Note ---
Date of Service December 21, 2023 Assessment & Plan (1) Left lower quadrant abdominal pain: Plan: I suspect her problems are postinfectious IBS type symptoms and they seem to have responded well to bentyl and PPI. If she continues to feel well okay with me to discharge on bentyl and protonix. She can follow up as needed. I don't suspect she will need these meds for long Admission and Anticipated Discharge Date Admission Date: December 20, 2023 Subjective Feeling much better now. Feels the bentyl is helping quite a bit. She had an episode of chest pain yesterday that responded well to PPI. She has had no more episodes. Still feels tender in her abdomen though Physical Exam Physical Exam: She looks well, freshly showered Constitutional: WD/WN, vitals as above Results & Data Vital Signs (Past 12 Hours) Vital Signs Temp Pulse Resp BP Pulse Ox O2 Del Method 12/21/23 07:00 36.7 C 52 L 16 115/76 96 Room Air
--- NOTE | 2023-12-21 10:06 | Discharge Summary ---
Date of Service December 21, 2023 Admission HPI Per Admitting Provider Candi Andrews is a 38yo female presenting with abdominal pain. Patient reports over the last several days she has had intermittent nausea with an episode of non-bloody/non-bilious vomiting yesterday as well as multiple soft BMs daily, more than usual. She has had some abdominal distention and bloating as well. This afternoon at 15:00 she developed severe LLQ pain and pressure. The pain progressed throughout the day with radiation into the back and into the left thigh. She tool Tylenol at home with no relief. She is passing gas but feels that she has a lot of bloating and distention. Otherwise, no fever, chills, cough, SOB, CP. No urinary complaints. Patient had her period last week. No vaginal discharge or discomfort. No additional complaints at this time. In the ER she is afebrile, HD stable, NAD ER Course: Morphine 4mg IV Morphine 6mg IV Zofran 4mg IV NSS Dilaudid 1mg IV Principal Diagnosis Abdominal pain, questionable colitis Discharge Exam The patient is awake, alert and oriented 3, well developed and well nourished, normocephalic and atraumatic, lying in bed and in no acute distress. HEENT--PERRL, EOMI, mucous membranes and oropharynx mildly dry Neck--supple. No JVD. No bruits. Thyroid normal, trachea midline, no adenopathy. Heart--normal S1 and S2. No murmurs, rubs or gallops. Lungs--clear bilaterally, no respiratory distress, no accessory muscle use. Abdomen--normal bowel sounds and soft. Mild epigastric and left sided abdominal pain Extremities--no cyanosis or clubbing. No edema. Dermatologic--normal skin turgor, normal color, no abnormal lymph nodes, no rash. Neurologic--cranial nerves II through XII grossly intact. Rheumatologic--normal range of motion. Psychiatric--normal affect. Discharge Data Allergies Allergy/AdvReac Type Severity Reaction Status Date / Time cefdinir Allergy Intermediate RASH Verified 12/18/23 20:40 sodium benzoate Allergy Mild Hives/Rash Verified 08/07/20 14:42 Consultations 12/18/23 23:01 ED Decision to Admit Stat 12/20/23 08:49 Consult Gastroenterology Routine Ordered Studies 12/18/23 19:47 CT abd pelvis IV con only Stat Hospital Course (1) Left lower quadrant abdominal pain: 38yo female presenting with LLQ abdominal pain, nausea, increased bowel mo vements. CT findings as above, concerning for possible closed loop bowel obstruction and abnormal fecal matter. Patient has had a cholecystectomy and hysterectomy in the past. No prior bowel obstructions. -CT abdomen and pelvis showed possible abnormal fecal collection however KUB was normal Pain now resolved GI has been consulted, recommendations appreciated-- Diet as tolerated Pain now resolved, patient wants to be discharged (2) Nausea and vomiting: Continue as needed Zofran F/E/N - LR at 125mL/hr x 2L, electrolytes WNL, NPO for now Ppx - Low risk for DVT Code - Full Dispo - Observation to medical Plan Discharge home Total Time Total Time Spent Total Time Spent (In Minutes): 35 Discharge Plan Discharge Items Patient Disposition: Home - Self-Care Reason For Visit: ABDOMINAL PAIN Discharge Diagnosis: colitis Activity: Resume your previous activity Non-emergency contact: Primary Care Provider Call non-emergency contact if: you have any medication questions Follow-up/Referrals: Venessa Abrams DO [Outside Practitioners] - 12/26/23 11:10 am (Date & Time 12/26/2023 11:10 AM Provider Venessa Abrams DO Department [facility] ) Diet: Regular Addtl Attending Provider Instructions: please follow up with your PCP Pending Studies at Discharge: No Stand-Alone Forms: My [employer], Smoking Cessation Medications and DC Order Prescriptions: New pantoprazole 40 mg Tablet,Delayed Release (Dr/Ec) 40 mg PO QAM 10 Days Qty: 10 0RF dicyclomine 10 mg Capsule 10 mg PO ACHS 5 Days Qty: 5 0RF Discharge Orders: Discharge Order (Routine); Ordered 12/21/23 Ordered By: Angel Cifuentes Admission Data Admit Date/Time: 12/20/23 14:26 Attending Provider: Suri Gerardo Admit Provider: Suri Gerardo Primary Care Provider: PCP,NO Other Providers: Suri Gerardo; Wolf Saenz Jr Coding Level of Care Code 95998 INP/OBS DISCH >30 MIN Diagnoses Left lower quadrant abdominal pain R10.32 Nausea and vomiting R11.2 Time Spent (min) 35
== END 2023-12-21 11:57 | disposition home or self-care (01) | DRG 392 ==
LOC: 3E 19:10 → ED 19:10 → SUATTDRO 23:06 → 3E 12-19 00:01
DX: R10.32 Left lower quadrant pain; Z88.8 Allergy status to other drugs, medicaments and biological substances; Z88.1 Allergy status to other antibiotic agents; Z87.891 Personal history of nicotine dependence

== ENCOUNTER 2024-05-23 22:48 | Observation (INO) ==
[2024-05-23] MEDS: SODIUM CHLORIDE 0.9% 1,000 ML IV ONE (23:31)
[2024-05-23] MEDS: ONDANSETRON INJ 2 MG/ML 2 ML VIAL IV STA (23:31)
[2024-05-23] MEDS: HYDROmorphone INJ 0.5 MG/0.5 ML SYR IV STA (23:31)
[2024-05-23 23:32] LABS: Basophils # (auto) 0.02 K/uL (0.00-0.20); Basophils % (auto) 0.2 %; Eosinophils # (auto) 0.05 K/uL (0.00-0.50); Eosinophils % (auto) 0.4 %; Hemoglobin 12.5 g/dl (12.0-16.0); Immature Granulocytes # (auto) 0.03 K/uL (0.01-0.20); Immature Granulocytes % (auto) 0.3 %; Lymphocytes # (auto) 1.61 K/uL (1.20-3.40); Lymphocytes % (auto) 13.9 %; Mean Corpuscular Hemoglobin 30.2 pg (25.0-34.0); Mean Corpuscular Hgb Conc 34.7 g/dL (32.0-36.0); Mean Platelet Volume 8.9 fL (9.4-12.4); Monocytes # (auto) 0.53 K/uL (0.11-0.59); Monocytes % (auto) 4.6 %; Neutrophils # (auto) 9.38 K/uL (1.40-6.50); Neutrophils % (auto) 80.6 %; Platelet Count 271 K/uL (130-400); RDW Coefficient of Variation 12.6 % (11.5-14.5); Red Blood Count 4.14 M/uL (4.20-5.40); White Blood Count 11.62 K/ul (4.8-10.8)
--- NOTE | 2024-05-23 23:34 | History & Physical Report ---
Date of Service May 23, 2024 Assessment & Plan (1) Pain in female pelvis: Plan: Examination fails to reveal any cuff dehiscence that is obvious she may have a slight separation of mucosa related to intercourse it may have also been the suture tearing regardless I do not see anything that requires surgical correction at this moment because specifically the cuff not only appears intact but palpates intact Because of her pain she will be admitted labs have been ordered CT scan will be ordered by the ER team If CT fails to show anything highly concerning would recommend admitting and starting intravenous antibiotics for possible cuff infection although this would be somewhat late for it it may have some inflammation as there was some tenderness May 18 on the exam and then a much worsening of her situation after intercourse this morning Update CT scan is normal with no collections. She has been admitted to observation overnight and I have seen her 7 hours later and she slept for most the night although now has some pain in the morning. Her white count has improved and I will talk further with her surgeon 75 minutes spent reviewing imaging and [id number] History of Present Illness Primary Care Provider: Erik Palmer MD 38-year-old woman who had a hysterectomy approximately 6 to 7 weeks ago with one of our partners Dr. 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 Patient reports intercourse this morning and after that and during that there was pain is initially some bleeding the bleeding stopped rapidly but then there was an increase in discharge of clearish fluid her pain continued in the low pelvis and her back she also has discomfort when moving She is able to void she has some nausea Allergies Allergy/AdvReac Type Severity Reaction Status Date / Time cefdinir Allergy Intermediate RASH Verified 05/18/24 09:23 Home Medications Medication Instructions Recorded Confirmed Type topiramate 200 mg tablet (Topamax) 200 mg PO BID #60 tabs 01/14/24 05/23/24 Rx gabapentin 300 mg capsule 300 mg PO TID 05/23/24 05/23/24 History oxycodone-acetaminophen 5 mg-325 1 tab PO Q4 PRN Pain 05/23/24 05/23/24 History mg tablet Patient History Medical History Adenomyoma of uterus Suspected sleep apnea sleep study to be done 05/2024 Nausea and vomiting after administration of anesthetic agent Anxiety Hx of migraines has been known to cause seizure like activity; currently on topamax Anemia Surgical History History of cholecystectomy History of laparoscopic appendectomy (01/28/24) Laparoscopic Appendectomy(Not Applicable) - Moisés Galarza, DO Hx of tonsillectomy H/O wisdom tooth extraction History of removal of cyst H/O tubal ligation History of right oophorectomy S/P endometrial ablation Family History Other Adopted Social History Smoking Status: Current every day smoker Tobacco Type: E-cigarettes / Vaping Second Hand Exposure: No; Do You Dip or Chew Tobacco: No; Hx Alcohol Use: Yes Hx Substance Use: No Preferred Language: Martiniquais Communication Ability: Effective Grievance Manager Required: No Beliefs That Will Affect Care: None marital status: Current Living Situation: Family Current Living Situation Comment: home with son current occupational status: employed How many Children do You have: 2 Other Information That Helps Us Care for You: No Feels Safe at Home: Yes Safety Concerns: Feels Safe At This Time during the past year weight has: increased > 10 lbs Assistive Devices: None Physical Exam Constitutional: WD/WN, vitals as above well developed and well nourished Respiratory: normal respiratory effort, lungs clear to auscultation normal respiratory effort Cardiovascular: RRR, no murmur, no edema Gastrointestinal (Abdomen): normal bowel sounds, soft, nontender, no hepatosplenomegaly Genitourinary: Speculum exam was done with nursing at the bedside is able to visualize the cuff it does appear intact. I can see see and palpate a suture which may have been dislodged with intercourse but I palpated this well and could not find any defect in the cuff the cuff is exquisitely tender though I did reinspect with a speculum to ensure and still could not see any defect in the cuff Somewhat difficult exam due to patient discomfort No bleeding seen and minimal discharge Results & Data Vital Signs (Past 12 Hours) Vital Signs Temp Pulse Resp BP Pulse Ox O2 Del Method 05/23/24 22:51 98.2 F 134 H 20 153/92 H 99 Room Air Coding Level of Care Code 99709 INT INP/OBS CARE 3/75MIN Diagnoses Pain in female pelvis R10.2
[2024-05-23 23:40] LABS: Appearance Urine Clear (Clear); Bacteria Urine Automated None Seen (None Seen); Bilirubin Urine Negative (Negative); Blood Urine Negative (Negative); Cast Urine Automated 0-2 /lpf (0-2); Color Urine Yellow; Epithelial Cell Urine Auto 0-2 /hpf (0-2); Glucose Urine UA Negative (Negative); Ketones Urine Negative (Negative); Leukocyte Esterase Urine 2+ (Negative); Nitrite Urine Negative (Negative); Protein Urine Negative (Negative); RBC Urine Automated 0-2 /hpf (0-2); Urobilinogen Urine Negative (Negative); pH Urine 8.5 (4.5-7.5)
[2024-05-23 23:51] LABS: Albumin Globulin Ratio 1.5 (0.9-2); Albumin Level 4.5 gm/dl (3.4-5.0); BUN Creatinine Ratio 11.2 (10-20); Bilirubin,Total 0.7 mg/dl (0.2-1.0); Calcium 9.2 mg/dl (8.6-10.3); Creatinine Clr Calc Pharmacy 107.4 ml/min; Est GFR (Non-African American) 81.1 ml/min; Potassium 3.3 mmol/L (3.5-5.1); Total Protein 7.5 gm/dl (6.0-8.3)
--- NOTE | 2024-05-23 23:51 | Emergency Department Note ---
Impression & Plan Abdominal pain, S/P laparoscopic hysterectomy ED Provider Note CHIEF COMPLAINT: Abdominal pain s/p sexual intercourse HISTORY OF PRESENT ILLNESS: This 38-year-old female patient past medical history uterine fibroids, sleep apnea, migraine headache, status postcholecystectomy and now hysterectomy 7 weeks ago. Patient has sexual intercourse this morning approximately 1030, is now complaining of abdominal pain a clear blood-tinged discharge regular for most of the day. She complains of a temperature 100.3 degrees. She has been taking Tylenol without any significant improvement. 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 Dr. Jorge is at the bedside evaluating the patient. REVIEW OF SYSTEMS: A review of systems was performed with positives and pertinent negatives listed in the history of present illness. 10 systems were reviewed and are otherwise negative. ALLERGIES: see below MEDICATIONS: see below PMH: see below SOCIAL HISTORY: see below DDx: vaginal cuff tear, intra-abdominal abscess, free air, infection among others. PHYSICAL EXAM: Vital signs reviewed. General: Well-appearing 38-year-old female, in no significant distress. HEENT: No scleral icterus, PERRLA, neck supple. moist mucous membranes Cardiovascular: Regular rate and rhythm, no extra sounds. Pulmonary: Clear to auscultation bilaterally, normal work of breathing. Abdomen: Soft, Diffuse abdominal tenderness, no rebound or guarding, nondistended, positive bowel sounds. Musculoskeletal: Atraumatic, no peripheral edema. : Pelvic exam deferred to [facility] Neurologic: Patient awake alert and oriented x 3, speech is clear Skin: Warm, dry, no rash EMERGENCY DEPARTMENT COURSE/MDM: Patient was evaluated and appeared to be in no significant distress. IV access was obtained and laboratory work was drawn. The patient was placed on the secured entrance monitor noted to be in a normal sinus rhythm. Blood pressures dropped to a systolic pressure of around 90-100. Patient was hydrated with normal saline solution x 2 L. IV Zosyn was ordered. CT imaging of the abdomen pelvis was performed and reveals no acute abnormality in the abdomen, no free air. Patient did request additional pain medication she did receive 0.5 mg of IV Dilaudid and 4 mg of Zofran. Later she was given 1 g of IV acetaminophen. The findings of the CAT scan and laboratory work were discussed with Dr. Jorge. The patient was advised to avoid sexual activity for at least 2 more weeks after her appointment 6 days ago. But she did not comply. Seems that a perforation of the vaginal cuff is likely given the scenario. Given the level of the patient's discomfort and the mild white count, she will be admitted to [facility] for further management. patient and were made aware of the plan and agreed. MONITORING: An order for cardiac monitoring was placed and the patient is noted to be in a normal sinus rhythm 84 beats per minute. RADIOLOGY: CT imaging of the abdomen pelvis per radiology is negative for acute findings. 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; controlled w/ topamax Stress reaction (Acute) Chemical exposure (Acute) Medical History Adenomyoma of uterus Suspected sleep apnea sleep study to be done 05/2024 Nausea and vomiting after administration of anesthetic agent Anxiety Hx of migraines has been known to cause seizure like activity; currently on topamax Anemia Surgical History History of cholecystectomy History of laparoscopic appendectomy (01/28/24) Laparoscopic Appendectomy(Not Applicable) - Moisés Gaalrza, Hx of tonsillectomy H/O wisdom tooth extraction History of removal of cyst H/O tubal ligation History of right oophorectomy S/P endometrial ablation Family History Other Adopted Social History Smoking Status: Current every day smoker Tobacco Type: E-cigarettes / Vaping Second Hand Exposure: No; Do You Dip or Chew Tobacco: No; Hx Alcohol Use: Yes Hx Substance Use: No Preferred Language: Ukrainian Communication Ability: Effective Cytotechnologist Required: No Beliefs That Will Affect Care: None marital status: Current Living Situation: Family Current Living Situation Comment: home with son current occupational status: employed How many Children do You have: 2 Other Information That Helps Us Care for You: No Feels Safe at Home: Yes Safety Concerns: Feels Safe At This Time during the past year weight has: increased > 10 lbs Assistive Devices: None Allergies Allergies Allergy/AdvReac Type Severity Reaction Status Date / Time cefdinir Allergy Intermediate RASH Verified 05/18/24 09:23 Home Meds Home Medications Medication Instructions Recorded Confirmed gabapentin 300 mg capsule 300 mg PO TID 05/23/24 05/23/24 oxycodone-acetaminophen 5 mg-325 1 tab PO Q4 PRN Pain 05/23/24 05/23/24 mg tablet Previous Rx's Medication Instructions Recorded topiramate 200 mg tablet (Topamax) 200 mg PO BID #60 tabs 01/14/24 Results & Data (ED) Vital Signs Vital Signs - 24 hr 05/23/24 22:51 05/23/24 23:40 05/23/24 23:42 Temperature 36.8 C Temperature Source Temporal Artery Scan Pulse Rate 134 H 84 Pulse Rate from SpO2 Sensor Respiratory Rate 20 Blood Pressure 153/92 H Blood Pressure Mean 112 Pulse Oximetry 99 99 Oxygen Delivery Method Room Air Room Air Sepsis Recent Fever Within 48 Hours No Sepsis New/Unexplained Change in Mental Status No Sepsis Action Taken by Nursing No Action Required 05/23/24 23:45 05/24/24 00:30 05/24/24 00:51 Temperature Temperature Source Pulse Rate 86 82 76 Pulse Rate from SpO2 Sensor 86 83 77 Respiratory Rate 21 19 Blood Pressure Blood Pressure Mean Pulse Oximetry 98 100 99 Oxygen Delivery Method Sepsis Recent Fever Within 48 Hours Sepsis New/Unexplained Change in Mental Status Sepsis Action Taken by Nursing 05/24/24 01:00 05/24/24 01:03 05/24/24 01:06 Temperature Temperature Source Pulse Rate 77 80 Pulse Rate from SpO2 Sensor 78 81 Respiratory Rate 20 16 Blood Pressure 99/60 L 99/60 L Blood Pressure Mean 73 76 Pulse Oximetry 99 100 Oxygen Delivery Method Room Air Sepsis Recent Fever Within 48 Hours Sepsis New/Unexplained Change in Mental Status Sepsis Action Taken by Nursing 05/24/24 01:08 05/24/24 01:21 05/24/24 01:30 Temperature Temperature Source Pulse Rate 77 Pulse Rate from SpO2 Sensor 77 Respiratory Rate 24 Blood Pressure 102/70 113/56 L Blood Pressure Mean 87 69 Pulse Oximetry 100 Oxygen Delivery Method Sepsis Recent Fever Within 48 Hours Sepsis New/Unexplained Change in Mental Status Sepsis Action Taken by Nursing 05/24/24 01:30 05/24/24 01:30 05/24/24 01:42 Temperature Temperature Source Pulse Rate 79 78 Pulse Rate from SpO2 Sensor 78 78 Respiratory Rate 16 18 Blood Pressure 113/56 L Blood Pressure Mean 69 Pulse Oximetry 100 99 Oxygen Delivery Method Room Air Sepsis Recent Fever Within 48 Hours Sepsis New/Unexplained Change in Mental Status Sepsis Action Taken by Nursing 05/24/24 01:54 05/24/24 02:00 05/24/24 02:00 Temperature Temperature Source Pulse Rate 77 Pulse Rate from SpO2 Sensor 79 Respiratory Rate 17 Blood Pressure 105/60 105/60 Blood Pressure Mean 77 77 Pulse Oximetry 99 Oxygen Delivery Method Sepsis Recent Fever Within 48 Hours Sepsis New/Unexplained Change in Mental Status Sepsis Action Taken by Nursing 05/24/24 02:00 05/24/24 02:21 Temperature Temperature Source Pulse Rate 75 77 Pulse Rate from SpO2 Sensor 76 76 Respiratory Rate 19 15 Blood Pressure Blood Pressure Mean Pulse Oximetry 100 97 Oxygen Delivery Method Room Air Other Room Air Sepsis Recent Fever Within 48 Hours Sepsis New/Unexplained Change in Mental Status Sepsis Action Taken by Long Term Medications Current Medication List: was personally reviewed by me Laboratory Data Attestation: I reviewed the patient's lab results. 05/23/24 23:15 05/23/24 23:15 Lab Results 05/23/24 05/23/24 Range/Units 23:05 23:15 WBC 11.62 H (4.8-10.8) K/ul RBC 4.14 L (4.20-5.40) M/uL Hgb 12.5 (12.0-16.0) g/dl Hct 36.0 L (37.0-47.0) % MCV 87.0 (80.0-100.0) fL MCH 30.2 (25.0-34.0) pg MCHC 34.7 (32.0-36.0) g/dL RDW Std Deviation 40.0 (36.4-46.3) fL RDW Coeff of Jose 12.6 (11.5-14.5) % Plt Count 271 (130-400) K/uL MPV 8.9 L (9.4-12.4) fL Immature Gran % (Auto) 0.3 % Neut % (Auto) 80.6 % Lymph % (Auto) 13.9 % Owen % (Auto) 4.6 % Eos % (Auto) 0.4 % Baso % (Auto) 0.2 % Neut # (Auto) 9.38 H (1.40-6.50) K/uL Lymph # (Auto) 1.61 (1.20-3.40) K/uL Owen # (Auto) 0.53 (0.11-0.59) K/uL Eos # (Auto) 0.05 (0.00-0.50) K/uL Baso # (Auto) 0.02 (0.00-0.20) K/uL Immature Gran # (Auto) 0.03 (0.01-0.20) K/uL Sodium 137 (136-145) mmol/L Potassium 3.3 L (3.5-5.1) mmol/L Chloride 108 H (98-107) mmol/L Carbon Dioxide 20 L (21-32) mmol/L Anion Gap 9 (3-11) BUN 10 (6-23) mg/dl Creatinine 0.89 (0.6-1.2) mg/dl Est Cr Clr Drug Dosing 107.4 ml/min Est GFR ( Amer) 94.0 ml/min Est GFR (Non-Af Amer) 81.1 ml/min BUN/Creatinine Ratio 11.2 (10-20) Glucose 112 H (70-99(Fasting)) mg/dl Calcium 9.2 (8.6-10.3) mg/dl Total Bilirubin 0.7 (0.2-1.0) mg/dl AST 38 (13-39) U/L ALT 35 (7-52) U/L Alkaline Phosphatase 44 (34-104) U/L Total Protein 7.5 (6.0-8.3) gm/dl Albumin 4.5 (3.4-5.0) gm/dl Globulin 3.0 (2.5-4.0) gm/dl Albumin/Globulin Ratio 1.5 (0.9-2) Lipase 45 (11-82) U/L Urine Color Yellow Urine Appearance Clear (Clear) Urine pH 8.5 H (4.5-7.5) Ur Specific [place] 1.010 (1.000-1.030) Urine Protein Negative (Negative) Urine Glucose (UA) Negative (Negative) Urine Ketones Negative (Negative) Urine Blood Negative (Negative) Urine Nitrite Negative (Negative) Urine Bilirubin Negative (Negative) Urine Urobilinogen Negative (Negative) Ur Leukocyte Esterase 2+ H (Negative) Urine WBC (Auto) 11-20 H (0-5) /hpf Urine RBC (Auto) 0-2 (0-2) /hpf U Hyaline Cast (Auto) 0-2 (0-2) /lpf U Epithel Cells (Auto) 0-2 (0-2) /hpf Urine Bacteria (Auto) None Seen (None Seen) Administered Medications Lactated Ringer's (Lr) 1,000 mls @ 125 mls/hr IV .Q8H LUIS EDUARDO Stop: 06/23/24 04:07 Last Admin: 05/24/24 04:32 Dose: 125 mls/hr Documented By: JANICE Ketorolac Tromethamine (Ketorolac 30 Mg/Ml Vial) 30 mg IV Q6H PRN PRN Reason: Pain Stop: 05/29/24 02:26 Last Admin: 05/24/24 04:31 Dose: 30 mg Documented By: JANICE Oxycodone/Acetaminophen (Oxycodone/Acetaminophen 5mg/325mg Tab) 1 - 2 tab PO Q4H PRN PRN Reason: COP[place], Cramping or edema Stop: 06/07/24 02:26 Last Admin: 05/24/24 02:57 Dose: 2 tab Documented By: LAY Discontinued Medications Hydromorphone HCl (Hydromorphone Inj 0.5 Mg/0.5 Ml Syr) 0.5 mg IV NOW STA Stop: 05/23/24 23:27 Last Admin: 05/23/24 23:31 Dose: 0.5 mg Documented By: LAY Sodium Chloride (Nss) 1,000 mls @ 999 mls/hr IV .Q1H1M ONE Stop: 05/24/24 00:09 Last Infusion: 05/24/24 01:04 Dose: Infused Documented By: Admin: 05/23/24 23:31 Dose: 999 mls/hr Documented By: LAY Sodium Chloride (Nss) 1,000 mls @ 999 mls/hr IV .Q1H1M ONE Stop: 05/24/24 02:19 Last Infusion: 05/24/24 03:44 Dose: Infused Documented By: Admin: 05/24/24 01:22 Dose: 999 mls/hr Documented By: LAY Acetaminophen (Ofirmev) 1,000 mg in 100 mls @ 400 mls/hr IV NOW STA Stop: 05/24/24 01:33 Last Infusion: 05/24/24 01:52 Dose: Infused Documented By: Admin: 05/24/24 01:22 Dose: 400 mls/hr Documented By: LAY Potassium Chloride (K Jagjit / Wtr) 10 meq in 100 mls @ 100 mls/hr IV Q1H LUIS EDUARDO Stop: 05/24/24 03:29 Last Infusion: 05/24/24 03:44 Dose: Infused Documented By: Admin: 05/24/24 02:50 Dose: 100 mls/hr Documented By: Infusion: 05/24/24 02:47 Dose: Infused Documented By: Admin: 05/24/24 01:47 Dose: 100 mls/hr Documented By: LAY Piperacillin Sod/Tazobactam Sod (Zosyn) 4.5 gm in 100 mls @ 200 mls/hr IV NOW ONE Stop: 05/24/24 02:00 Last Infusion: 05/24/24 02:59 Dose: Infused Documented By: Admin: 05/24/24 02:26 Dose: 200 mls/hr Documented By: LAY Ioversol (Optiray 320 100ml) 100 ml IV ONCE ONE Stop: 05/24/24 00:34 Last Admin: 05/24/24 00:33 Dose: 93 ml Documented By: ONEIL Ondansetron HCl (Ondansetron Inj 2 Mg/Ml 2 Ml Vial) 4 mg IV NOW STA Stop: 05/23/24 23:27 Last Admin: 05/23/24 23:31 Dose: 4 mg Documented By: LAY Imaging Data Radiologist's Impression: Abdomen/Pelvis CT 05/23/24 23:27 Exam(s): CT ABDOMEN + PELVIS With Contrast IV Amt: 93 ml optiray 320 EXAM: CT Abdomen and Pelvis With Intravenous Contrast CLINICAL HISTORY: Reason for exam: abd tender s/p sex intercourse, hyster 7 wk ago. TECHNIQUE: Axial computed tomography images of the abdomen and pelvis with intravenous contrast. CTDI is 27.9 mGy and DLP is 1511 mGy-cm. Automated exposure control was utilized for the study. A dose lowering technique was utilized adhering to the principles of ALARA. CONTRAST: Patient received 93 ml optiray 320 of IV contrast COMPARISON: 02/02/24 FINDINGS: Lung bases: Unremarkable. No mass. No consolidation. ABDOMEN: Liver: Unremarkable. No mass. Gallbladder and bile ducts: Post cholecystectomy. No ductal dilation. Pancreas: Unremarkable. No mass. No ductal dilation. Spleen: Unremarkable. No splenomegaly. Adrenals: Unremarkable. No mass. Kidneys and ureters: Unremarkable. No hydronephrosis. Stable small left renal cysts measuring up to 2.7 cm which require no further follow- up. Stomach and bowel: Unremarkable. No obstruction. No mucosal thickening. PELVIS: Appendix: Post appendectomy. Bladder: Unremarkable. No mass. Reproductive: Interval hysterectomy. Mild thickening involving the a segment of the right lower quadrant small bowel wall demonstrated, nonspecific in etiology, possible reactive inflammation from recent hysterectomy surgery. Bowel is normal in caliber. ABDOMEN and PELVIS: Intraperitoneal space: Unremarkable. No free air. No drainable abscess or free fluid collection. Bones/joints: No acute fracture. No dislocation. Soft tissues: Unremarkable. Vasculature: Unremarkable. No abdominal aortic aneurysm. Lymph nodes: Unremarkable. No enlarged lymph nodes. IMPRESSION: No acute findings in the abdomen or pelvis. Electronically signed by: Kevin Simms MD 05/24/24 02:12 AM Discharge Plan Visit Data Chief Complaint: Vaginal Pain Stated Complaint: VAG PAIN,FEVER,NAUSEA,BLEEDING,FLUID DISCHARGE ED Provider: Kristi Anderson Discharge Problem: Abdominal pain, S/P laparoscopic hysterectomy Patient Disposition: Admitted As Inpatient Discharge Instructions Interventions: ED Discharge Assessment Last Done: 05/24/24 03:32 Discharge Problem: Abdominal pain Qualifiers: Abdominal location: generalized Qualified Code(s): R10.84 - Generalized abdominal pain
[2024-05-24] MEDS: OPTIRAY 320 100ml IV ONE (00:33)
[2024-05-24] MEDS: SODIUM CHLORIDE 0.9% 1,000 ML IV ONE (01:22)
[2024-05-24] MEDS: ACETAMINOPHEN 1,000 MG/100 ML VIAL IV STA (01:22)
[2024-05-24] MEDS: POTASSIUM CHLORIDE / WTR 10 MEQ/100 ML PLCT IV SCH (01:47)
--- NOTE | 2024-05-24 02:13 | CT Scan Report ---
Exam(s): CT ABDOMEN + PELVIS With Contrast IV Amt: 93 ml optiray 320 EXAM: CT Abdomen and Pelvis With Intravenous Contrast CLINICAL HISTORY: Reason for exam: abd tender s/p sex intercourse, hyster 7 wk ago. TECHNIQUE: Axial computed tomography images of the abdomen and pelvis with intravenous contrast. CTDI is 27.9 mGy and DLP is 1511 mGy-cm. Automated exposure control was utilized for the study. A dose lowering technique was utilized adhering to the principles of ALARA. CONTRAST: Patient received 93 ml optiray 320 of IV contrast COMPARISON: 02/02/24 FINDINGS: Lung bases: Unremarkable. No mass. No consolidation. ABDOMEN: Liver: Unremarkable. No mass. Gallbladder and bile ducts: Post cholecystectomy. No ductal dilation. Pancreas: Unremarkable. No mass. No ductal dilation. Spleen: Unremarkable. No splenomegaly. Adrenals: Unremarkable. No mass. Kidneys and ureters: Unremarkable. No hydronephrosis. Stable small left renal cysts measuring up to 2.7 cm which require no further follow- up. Stomach and bowel: Unremarkable. No obstruction. No mucosal thickening. PELVIS: Appendix: Post appendectomy. Bladder: Unremarkable. No mass. Reproductive: Interval hysterectomy. Mild thickening involving the a segment of the right lower quadrant small bowel wall demonstrated, nonspecific in etiology, possible reactive inflammation from recent hysterectomy surgery. Bowel is normal in caliber. ABDOMEN and PELVIS: Intraperitoneal space: Unremarkable. No free air. No drainable abscess or free fluid collection. Bones/joints: No acute fracture. No dislocation. Soft tissues: Unremarkable. Vasculature: Unremarkable. No abdominal aortic aneurysm. Lymph nodes: Unremarkable. No enlarged lymph nodes. IMPRESSION: No acute findings in the abdomen or pelvis. Electronically signed by: Kevin Simms MD 05/24/24 02:12 AM
[2024-05-24] MEDS: PIPERACILLIN/TAZOBACTAM 4.5 GM/100 ML BAG IV ONE (02:26)
[2024-05-24] MEDS ORDERED: HYDROmorphone INJ 0.5 MG/0.5 ML SYR IV PRN (02:27)
[2024-05-24] MEDS: oxyCODONE/ACETAMINOPHEN 5mg/325mg TAB PO PRN (02:57)
[2024-05-24] MEDS ORDERED: ACETAMINOPHEN 325 MG TAB PO PRN (04:08)
[2024-05-24] MEDS ORDERED: ONDANSETRON INJ 2 MG/ML 2 ML VIAL IV PRN (04:08)
[2024-05-24] MEDS: KETOROLAC 30 MG/ML VIAL IV PRN (04:31)
[2024-05-24] MEDS: LACTATED RINGER'S 1,000 ML IV SCH (04:32)
[2024-05-24 06:21] LABS: Basophils # (auto) 0.03 K/uL (0.00-0.20); Basophils % (auto) 0.3 %; Eosinophils # (auto) 0.12 K/uL (0.00-0.50); Eosinophils % (auto) 1.2 %; Hematocrit (blood only) 32.5 % (37.0-47.0); Immature Granulocytes # (auto) 0.02 K/uL (0.01-0.20); Immature Granulocytes % (auto) 0.2 %; Lymphocytes # (auto) 2.26 K/uL (1.20-3.40); Lymphocytes % (auto) 23.5 %; Mean Corpuscular Hemoglobin 29.9 pg (25.0-34.0); Mean Corpuscular Hgb Conc 33.8 g/dL (32.0-36.0); Mean Corpuscular Volume 88.3 fL (80.0-100.0); Mean Platelet Volume 9.1 fL (9.4-12.4); Monocytes % (auto) 7.3 %; Neutrophils # (auto) 6.49 K/uL (1.40-6.50); Neutrophils % (auto) 67.5 %; Platelet Count 241 K/uL (130-400); RDW Coefficient of Variation 12.8 % (11.5-14.5); RDW Standard Deviation 41.2 fL (36.4-46.3); Red Blood Count 3.68 M/uL (4.20-5.40); White Blood Count 9.62 K/ul (4.8-10.8)
[2024-05-24] MEDS: GABAPENTIN 300 MG CAP PO SCH (09:00)
[2024-05-24] MEDS: IBUPROFEN 600 MG TAB PO PRN (11:56)
[2024-05-24] MEDS: PIPERACILLIN/TAZOBACTAM 4.5 GM in DEXTROSE 5% MINI-B 100 ML IV SCH (12:43)
--- NOTE | 2024-05-24 12:52 | Gynecologic Progress Note ---
Date of Service May 24, 2024 Assessment & Plan (1) Pain in female pelvis: Plan: Candi is a 38-year-old presents for acute pain following intercourse approximately 7 weeks post total laparoscopic hysterectomy. No acute issues at present. cuff appears intact on exam today and was also felt to be intact based on exam by Dr. Jorge last night. Discussed potential causes of pelvic pain related to intercourse postsurgery. Overall pain appears to be improving compared to yesterday but was still noted to be tender on exam and needed some pain medications this morning. Will continue to monitor throughout the day and reassess this afternoon. Questions answered (2) Abdominal pain: (3) S/P laparoscopic hysterectomy: Admission and Anticipated Discharge Date Admission Date: May 24, 2024 Subjective Candi admitted overnight for acute pelvic pain following intercourse approximately 7 weeks post total laparoscopic hysterectomy. Was noted to be acutely tender on exam last night. Vaginal cuff appeared and felt intact based on exam by Dr. Jorge at time of admission. Reports pain reasonable overnight but has increased again this morning. Denying any continued discharge at present. Is currently on Zosyn for presumptive treatment of a cuff cellulitis. White count has decreased to 9 from 11 yesterday. Vitals have remained within normal limits. Physical Exam Genitourinary: Vaginal cuff tender but intact on exam today. Could distinctly feel the cuff suture line and was noted to be intact. No significant discharge noted on exam Results & Data Vital Signs (Past 12 Hours) Vital Signs Temp Pulse Pulse Resp BP BP Pulse Ox 05/24/24 04:12 36.6 C 59 L 16 107/66 98 05/24/24 02:30 117/70 05/24/24 02:21 77 15 97 05/24/24 02:00 75 19 100 05/24/24 02:00 105/60 05/24/24 02:00 105/60 05/24/24 01:54 77 17 99 05/24/24 01:42 78 18 99 05/24/24 01:30 79 16 100 05/24/24 01:30 113/56 L 05/24/24 01:30 113/56 L 05/24/24 01:21 77 24 100 05/24/24 01:08 102/70 05/24/24 01:06 80 16 100 05/24/24 01:03 99/60 L 05/24/24 01:00 77 20 99/60 L 99 05/24/24 00:51 76 19 99 05/24/24 00:30 82 100 05/23/24 23:45 86 21 98 05/23/24 23:42 99 05/23/24 23:40 84 05/23/24 22:51 36.8 C 134 H 20 153/92 H 99 O2 Del Method 05/24/24 04:12 Room Air 05/24/24 02:30 05/24/24 02:21 Room Air 05/24/24 02:00 Room Air, Other 05/24/24 02:00 05/24/24 02:00 05/24/24 01:54 05/24/24 01:42 Room Air 05/24/24 01:30 05/24/24 01:30 05/24/24 01:30 05/24/24 01:21 05/24/24 01:08 05/24/24 01:06 05/24/24 01:03 05/24/24 01:00 Room Air 05/24/24 00:51 05/24/24 00:30 05/23/24 23:45 05/23/24 23:42 Room Air 05/23/24 23:40 05/23/24 22:51 Room Air PG Care Time/CCT Total # of Minutes Spent Total Time Spent with Patient: Total time spent is greater than 50% in coordination of care (as documented) at patient's floor/unit and/or counseling patient: Coding Level of Care Code 33661 Post Operative Follow-Up Diagnoses Pain in female pelvis R10.2 Abdominal pain R10.84 Abdominal location: generalized S/P laparoscopic hysterectomy Z90.710 (2) Abdominal pain Abdominal location: generalized Qualified Code(s): R10.84 - Generalized abdom inal pain
[2024-05-24] MEDS ORDERED: Nursing to Pharmacy Communication SCH (13:00)
--- NOTE | 2024-05-24 17:33 | Gynecologic Progress Note ---
Date of Service May 24, 2024 Assessment & Plan (1) S/P laparoscopic hysterectomy: Plan: Improving and stable for outpatient management. Rx for Percocet sent to pharmacy. Will transition to Bactrim. Precautions reviewed and recommended returning to full post op precautions. Plan for clinic follow up next week. (2) Abdominal pain: (3) Pain in female pelvis: Admission and Anticipated Discharge Date Admission Date: May 24, 2024 Subjective No acute issue throughout the day. Pain controlled with PO meds. Overall improving compared to yesterday. Results & Data Vital Signs (Past 12 Hours) Vital Signs Temp Pulse Resp BP Pulse Ox O2 Del Method 05/24/24 16:01 36.6 C 53 L 16 111/67 99 Room Air 05/24/24 12:04 36.5 C 56 L 16 110/73 96 Room Air 05/24/24 07:27 36.3 C L 54 L 14 95/67 L 100 Room Air PG Care Time/CCT Total # of Minutes Spent Total Time Spent with Patient: Total time spent is greater than 50% in coordination of care (as documented) at patient's floor/unit and/or counseling patient: Coding Level of Care Code 05162 Post Operative Follow-Up Diagnoses S/P laparoscopic hysterectomy Z90.710 Abdominal pain R10.84 Abdominal location: generalized Pain in female pelvis R10.2 (2) Abdominal pain Abdominal location: generalized Qualified Code(s): R10.84 - Generalized abdominal pain
== END 2024-05-24 18:23 | disposition home or self-care (01) ==
LOC: ED 22:48 → 4E1 22:48